=== PATIENT | male | born 1965 | race Caucasian/White ===

== ENCOUNTER 2019-08-09 22:19 | Inpatient (IN) | payer MEDICARE, SELFPAY | END 2019-08-13 17:50 | disposition home health service (06) | DRG 264 | PROVIDERS: Admitting Provider Internal Medicine; Emergency Provider Emergency Medicine; Family Provider Nurse Practitioner; Visit Provider Family Medicine | DX: E11.52 Type 2 diabetes mellitus with diabetic peripheral angiopathy with gangrene (principal); M86.172 Other acute osteomyelitis, left ankle and foot; I96 Gangrene, not elsewhere classified; E11.69 Type 2 diabetes mellitus with other specified complication; I10 Essential (primary) hypertension; Z91.14 Patient's other noncompliance with medication regimen ==

== ENCOUNTER → 2019-09-06 10:59 | Outpatient (BNVA) | payer MEDICARE, SELFPAY | PROVIDERS: PCP Podiatrist Foot & Ankle Surgery; Visit Provider Podiatrist Foot & Ankle Surgery | DX: M86.172 Other acute osteomyelitis, left ankle and foot (principal); I73.9 Peripheral vascular disease, unspecified; L97.522 Non-pressure chronic ulcer of other part of left foot with fat layer exposed | CPT/HCPCS: 73630 ==

== ENCOUNTER 2019-09-19 12:16 | Outpatient (CLI) | payer MEDICARE, SELFPAY ==
[2019-09-19 13:03] VITALS: BMI 38.0
[2019-09-19 13:05] VITALS: BP 113/75; PULSE 67; RESP 18; TEMP 36.6; O2SAT 96
== END 2019-09-19 12:17 | disposition home or self-care (01) ==
LOC: GILAB 12:24
PROVIDERS: PCP Podiatrist Foot & Ankle Surgery; Visit Provider Podiatrist Foot & Ankle Surgery
DX: M86.9 Osteomyelitis, unspecified (principal)

== ENCOUNTER 2020-07-29 09:37 | Emergency (ER) | payer MEDICARE, SELFPAY ==
[2020-07-29 09:38] VITALS: BP 158/79; PULSE 72; RESP 18; TEMP 36.7; O2SAT 94; BMI 36.9
--- NOTE | 2020-07-29 09:47 | ED_ITS ---
HPI - Wound/Laceration General: Chief Complaint: Wound/Laceration Stated Complaint: Right Foot Pain Time Seen by Provider: 07/29/20 09:40 Source: patient Mode of arrival: ambulatory Limitations: no limitations History of Present Illness: HPI narrative: 55 yo male patient presents to the ER with redness and pain to botton of left foot. 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 Pt states he is a type 1 diabetic but has not taken his insulin for a year. Pt states I will not give myself shots. Pt denies fever, chest pain SOB or abd pain. pt denies any injury or trauma. Associated symptoms: Denies chills, fever(s), nausea, syncope or vomiting Review of Systems Const: Denies: fever(s) or chills Eyes: Denies: change in vision or blurry vision ENMT: Denies: throat pain, uvular edema, enlarged tonsils or odynophagia Card: Denies: chest pain, palpitations, irregular heart rhythm, lightheadedness or syncope Resp: Denies: dyspnea, productive cough, non-productive cough, wheezing or pain on inspiration GI: Denies: abdominal pain, nausea, vomiting, diarrhea or constipation : Denies: flank pain, difficulty urinating, dysuria or urinary frequency Musc: Reports: extremity pain; Denies: neck pain or back pain Skin/Breast: Reports: new lesions Neuro: Denies: headache(s), numbness in extremities or weakness in extremities Psych: Denies: suicidal ideation or homicidal ideation Endo: Denies: polyuria or polydipsia Javed/Lymph: Denies: easy bruising, easy bleeding, petechiae, purpura, enlarged lymph nodes or tender lymph nodes All/Imm: Denies: urticaria, throat swelling, tongue swelling, facial swelling, acute wheezing or itchy eyes PFSH ED PFSH: Medical History (Updated 07/29/20 @ 12:12 by Erika Acharya) Hypertension Type 2 diabetes mellitus with diabetic neuropathy Surgical History History of open reduction and internal fixation (ORIF) procedure Right tibia. 1996 Family History Denies family history of Diabetes CAD (coronary artery disease) Clotting disorder Dementia Hyperlipidemia Psychiatric illness Chronic kidney disease (CKD) Suicide Anesthesia complication Bleeding disorder Family history of premature coronary artery disease Lung disease Cancer Hypertension Stroke Social History Smoking and tobacco status: never smoked Alcohol intake: current Alcohol intake frequency: holidays/special occasions only Current occupational status: employed Physical Exam Const: COMMON NORMALS: no acute distress, patient oriented x3, healthy appearing, alert and well nourished GENERAL APPEARANCE: cooperative, comfortable, well kempt and well developed; not ill appearing ORIENTATION/CONSCIOUSNESS: Yes awake, Yes oriented to person, Yes oriented to place and Yes oriented to time HENMT: COMMON NORMALS: normocephalic, atraumatic, hearing grossly normal bilaterally, external ears normal, EAC's normal, TM's normal bilaterally, Normal external nose present, Normal nasal mucous membranes and turbinates present and moist oral mucous membranes HEAD & SCALP: normal to inspection, normocephalic and atraumatic FACE & SINUS: normal facial exam, sinuses nontender and face symmetric NOSE: Normal external nose present, Normal nares present, Normal nasal mucous membranes and turbinates present, No nasal discharge present and Abnormal external nose present EXTERNAL EAR: Yes external ears normal and Yes mastoids normal EXTERNAL AUDITORY CANAL: EAC's normal TYMPANIC MEMBRANE: TM's normal bilaterally MOUTH: Normal oral and palatal mucosa present, lip normal, tongue normal and Normal salivary glands and ducts present THROAT: no uvular edema Eye: COMMON NORMALS: Equal, round and reactive pupils present, EOMs intact bilaterally, conjunctivae normal, no scleral icterus and no papilledema GENERAL EYE: appearance normal, both eyes and all related structures EYELID: eyelids normal CONJUNCTIVA: Yes conjunctivae normal SCLERA: sclerae normal CORNEA: Yes corneas normal PUPIL: Yes Equal, round and reactive pupils present DIRECT OPHTHALMOSCOPY: Yes no papilledema Neck/C-Spine: COMMON NORMALS: full ROM, no lymphadenopathy, supple, no meningeal signs, no JVD and Thyroid normal GENERAL: Yes normal visual inspection and Yes trachea midline THYROID: Thyroid normal CERVICAL SPINE: Yes cervical ROM normal Lymph: LYMPHATIC: no lymphadenopathy noted and no lymphedema noted Chest: COMMONS NORMALS: normal inspection of the chest and normal palpation of entire chest wall Resp: COMMON NORMALS: normal respiratory effort, No retractions, No use of accessory muscles and clear to auscultation bilaterally EFFORT & INSPECTION: Yes able to speak in complete sentences and Yes symmetric chest movement AUSCULTATION: clear to auscultation bilaterally Cardio: COMMON NORMALS: no JVD, regular rate and regular rhythm RATE: regular rate RHYTHM: regular rhythm GI: COMMON NORMALS: Normal to inspection, nondistended, normoactive bowel sounds present, Soft to palpation, non-tender, No hepatosplenomegaly present, no masses and no bruits INSPECTION: Yes normal to inspection AUSCULTATION: Yes normoactive bowel sounds PALPATION: Yes Soft to palpation and Yes No hepatosplenomegaly present RECTAL EXAM: Yes deferred : COMMON NORMALS: Yes no CVA tenderness BLADDER/KIDNEY EXAM: Yes no CVA tenderness Back/Pelvis: COMMON NORMALS: no CVA tenderness, thoracic and lumbar spine normal to inspection, no thoracic nor lumbar tenderness, thoraco-lumbar ROM normal and straight leg raise negative bilaterally THORACIC SPINE/UPPER BACK: Yes normal to inspection LUMBAR SPINE/LOWER BACK: Yes normal to inspection Extremity: COMMON NORMALS: full ROM, capillary refill normal, no joint enlargement, no clubbing, cyanosis or edema, no calf tenderness and no pedal edema EXTREMITY IMAGE (FRONT): 1. erythema Neuro: COMMON NORMALS: patient oriented x3, CN's II-XII intact bilaterally, moves all extremities, no focal motor deficits, no sensory deficits noted, deep tendon reflexes 2+ bilaterally and gait normal SENSORIUM/ORIENTATION: Yes alert, Yes oriented to person, Yes oriented to place and Yes oriented to time MENINGEAL SIGNS: Yes no meningeal signs CRANIAL NERVES: Yes CN normal except as noted SPEECH: speech normal GAIT: Yes Normal gait present SENSORY EXAM: Yes extremities MOTOR EXAM: 5/5 motor strength present throughout Psych: COMMON NORMALS: mental status grossly normal, Normal thought process present, cooperative, normal affect, speech normal, activity/motor behavior normal, denies hallucinations, denies homicidal ideation and denies suicidal ideation APPEARANCE: Yes grossly normal and Yes well kempt ATTITUDE: Yes calm ACTIVITY/MOTOR BEHAVIOR: Yes appropriate eye contact SPEECH: Yes normal speech THOUGHT PROCESS: Normal thought process present THOUGHT CONTENT: Yes Normal thought content present ATTENTION/CONCENTRATION: Yes attention grossly intact MEMORY/COGNITION: Yes memory grossly intact INSIGHT: Good insight present (Psych) JUDGEMENT: Good judgement present (Psych) Skin: COMMON NORMALS: no rashes or lesions noted, no wounds, turgor normal, no jaundice, no petechiae and no mottling GENERAL SKIN EXAM: no rashes or lesions noted and turgor normal Course Vital Signs: Vital signs: Vital Signs Temperature 98.1 F 07/29/20 09:38 Pulse Rate 63 07/29/20 12:28 Respiratory Rate 16 07/29/20 12:28 Blood Pressure 122/83 07/29/20 12:28 Pulse Oximetry 96 07/29/20 12:28 MDM - Wound/Laceration 2 MDM Narrative: Medical decision making narrative: Patient is well-appearing nontoxic and in no acute distress. I did get an x-ray of patient's left footPatient: Jacky Sheikh #: [id number] : 1965Acct#:[id number] Age/Sex: 55 / MADM Date: 07/29/20 [facility] Dr: Ordering Provider/Ordering MD: Erika Acharya NP Date of Service: 07/29/20 Procedure(s): XR foot LT min 3V* [id number] Accession Number(s): [id number] Report Number: [id number] PROCEDURE INFORMATION: Exam: XR Left Foot Complete Exam date and time: 07/29/2020 9:47 AM Age: 55 years old Clinical indication: Pain; Foot; Left; Additional info: Pain. Diabetic. TECHNIQUE: Imaging protocol: XR Left foot. Views: 3 or more views. COMPARISON: No relevant prior studies available. FINDINGS: Bones/joints: Multi-articular primary osteoarthritic changes including joint space narrowing, subchondral cystic/sclerotic changes, and marginal osteophyte formations. Enthesophytes are present off the os calcis at the Achilles insertion and plantar fascia origin. Soft tissues: Normal. Other findings: Moderate hallux valgus. XR/XR foot LT min 3V* [id number] IMPRESSION: 1. Multi-articular primary osteoarthritic changes are present as described above. 2. Moderate hallux valgus. There is no evidence of warm area concerning for gout. Patient's physical exam findings are consistent with early onset of a diabetic foot ulcer. Patient does have diabetic neuropathy. Patient states he does not check his blood sugar and has not taken insulin for over a year. Patient states he refuses to give himself insulin injections. His blood glucose here was 300. I advised patient of the risk of having uncontrolled blood sugars. Patient states he will follow- up with his primary care physician. I will refer patient to wound care management for follow met of his foot pain. I will start patient on antibiotics at this time. Patient is neurovascularly intact distally. Patient denied any other symptoms patient is afebrile. There is no evidence of systemic symptoms of illness. At this point do not feel any further testing is warranted. Patient is medically cleared and appropriate for discharge Lab Data: Labs: Lab Results 07/29/20 07/29/20 Range/Units 10:00 10:00 WBC 5.3 (4.0-10.0) 10^3/ uL RBC 5.56 H (4.1-5.3) 10^6/u L Hgb 15.2 (11.7-16.6) g/dL Hct 46.0 (42.0-52.0) % MCV 82.7 (80-94) fL MCH 27.3 L (28.0-34.0) pg MCHC 33.0 (30.0-36.0) g/dL RDW 12.4 (12.1-15.1) % Plt Count 185 (130-400) 10^3/c mm MPV 11.9 H (7.4-10.4) fL Neut % (Auto) 49.0 % Lymph % (Auto) 34.0 % [place] % (Auto) 8.3 % Eos % (Auto) 7.6 % Baso % (Auto) 0.9 % Neut # (Auto) 2.58 (1.8-7.7) 10^3/u L Lymph # (Auto) 1.8 (0.8-4.8) 10^3/u L [place] # (Auto) 0.4 (0.2-0.9) 10^3/u L Eos # (Auto) 0.4 (0.0-0.8) 10^3/u L Baso # (Auto) 0.1 (0.0-0.1) 10^3/u L Nucleated RBC % (a uto) 0 % Nucleated RBCs # 0.0 /100WBC Sodium 135 L (136-145) mmol/L Potassium 3.9 (3.5-5.1) mmol/L Chloride 102 (98-107) mmol/L Carbon Dioxide 23 (22-29) mmol/L Anion Gap 13.9 (5-19) BUN 14 (6-20) mg/dL Creatinine 0.7 (0.7-1.2) mg/dL GFR Calculation 116.2 (90-130) mL/min Glucose 302 H (65-115) mg/dL Calculated Osmolal ity 292 (285-295) mOsm/k g Calcium 8.8 (8.5-10.5) mg/dL Total Bilirubin 0.5 (0.15-1.2) mg/dL AST 21 (0-40) U/L ALT 26 (0-41) U/L Alkaline Phosphata se 111 (40-130) IU/L Total Protein 6.6 (6.6-8.7) g/dL Albumin 4.0 (3.5-5.2) g/dL Globulin 2.6 (1.3-4.6) g/dL Discharge Plan Discharge Patient Disposition: Home Clinical Impression: Diabetic foot ulcer Qualifiers: Diabetic foot ulcer location: unspecified part of foot Diabetes mellitus type: type 1 Laterality: left Non-pressure ulcer stage: limited to breakdown of skin Qualified Code(s): E10.621 - Type 1 diabetes mellitus with foot ulcer Condition: Stable Prescriptions: New cephalexin 500 mg capsule 500 mg PO QID 14 Days Qty: 56 RF: 0 No Action amlodipine 10 mg tablet 10 mg PO QAM RF: 0 meloxicam 15 mg tablet 15 mg PO DAILY PRN (Reason: Pain) RF: 0 Levemir U-100 Insulin 100 unit/mL Solution See Rx Instructions .ROUTE .COMPLEX RF: 0 atorvastatin 40 mg tablet 40 mg PO QAM RF: 0 Discharge Orders: Discharge ED (Routine); Ordered 07/29/20 Ordered By: Erika Acharya Referrals: Reuben Nassar DPM [Primary Care Provider] - Discharge Diet: Advance as tolerated Discharge Activity: Increase activity as tolerated Activity Restrictions/Additional Instructions: Dental Receptionist will call you on Thursday for wound care follow up Please check foot daily and return with any worsening of symptoms Please take antibiotics as prescribed Coding Level of Care Code ED Net Front End Developer for g Fwd Exam Comprehensive
[2020-07-29 10:16] LABS: Basophils # 0.1 10^3/uL (0.0-0.1); Basophils % 0.9 %; Eosinophils # 0.4 10^3/uL (0.0-0.8); Eosinophils % 7.6 %; Hemoglobin 15.2 g/dL (11.7-16.6); Lymphocytes # 1.8 10^3/uL (0.8-4.8); Mean Corpuscular Hemoglobin 27.3 pg (28.0-34.0); Mean Corpuscular Volume 82.7 fL (80-94); Mean Platelet Volume 11.9 fL (7.4-10.4); Monocytes # 0.4 10^3/uL (0.2-0.9); Monocytes % 8.3 %; Neutrophils # 2.58 10^3/uL (1.8-7.7); Nucleated Red Blood Cells % 0 %; Platelet Count 185 10^3/cmm (130-400); Red Blood Count 5.56 10^6/uL (4.1-5.3); Red Cell Distribution Width 12.4 % (12.1-15.1); White Blood Count 5.3 10^3/uL (4.0-10.0)
[2020-07-29 10:38] LABS: Alanine Aminotransferase 26 U/L (0-41); Alkaline Phosphatase 111 IU/L (40-130); Anion Gap 13.9 (5-19); Aspartate Amino Transferase 21 U/L (0-40); Blood Urea Nitrogen 14 mg/dL (6-20); Calcium 8.8 mg/dL (8.5-10.5); Carbon Dioxide 23 mmol/L (22-29); Chloride 102 mmol/L (98-107); Globulin 2.6 g/dL (1.3-4.6); Glomerular Filtration Rate 116.2 mL/min (90-130); Glucose 302 mg/dL (65-115); Osmolality Calculated 292 mOsm/kg (285-295); Potassium 3.9 mmol/L (3.5-5.1); Sodium 135 mmol/L (136-145); Total Bilirubin 0.5 mg/dL (0.15-1.2); Total Protein 6.6 g/dL (6.6-8.7)
[2020-07-29 12:28] VITALS: BP 122/83; PULSE 63; RESP 16; O2SAT 96
[2020-07-29 14:45] LABS: Estmated Average Glucose 237; Hemoglobin A1C 9.9 % (4.0-6.0)
--- NOTE | 2020-07-30 11:07 | DCPLANNER ---
manager card had message to schedule a follow up appointment for patient with Wound Care. manager card called the Wound Care clinic, spoke with Maria Del Carmen, gave clinic patients information. A follow up appointment was scheduled for , August 02, 2020 at 2:[address] Murillo. manager card called patient and gave patients the appointment information.
--- NOTE | 2020-08-22 13:19 | DCPLANNER ---
Patient had a followup appointment scheduled for 08.02.20 with Wound Care - patient did attend appointment.
== END 2020-07-29 12:23 | disposition home or self-care (01) ==
PROVIDERS: Emergency Provider Registered Nurse; PCP Podiatrist Foot & Ankle Surgery
DX: E10.621 Type 1 diabetes mellitus with foot ulcer (principal); Z79.4 Long term (current) use of insulin; I10 Essential (primary) hypertension
CPT/HCPCS: 12345; 73630; 80053; 83036; 85025; 99281; 99283

== ENCOUNTER 2020-08-08 09:13 | Outpatient (CLI) | payer MEDICARE, SELFPAY | END 2020-08-08 09:14 | disposition home or self-care (01) | PROVIDERS: PCP Podiatrist Foot & Ankle Surgery; Visit Provider Nurse Practitioner Family | DX: L97.522 Non-pressure chronic ulcer of other part of left foot with fat layer exposed (principal) | CPT/HCPCS: G0463 ==

== ENCOUNTER 2021-08-05 10:41 | Outpatient (CLI) | payer MEDICARE, SELFPAY ==
--- NOTE | 2021-08-05 11:00 | MR_ITS ---
WS: [id number] INDICATION: Localized swelling of right leg with lump TECHNIQUE: MR of the right lower leg without and with gadolinium enhancement FINDINGS: Postoperative changes intramedullary francisco javier fixation tibial shaft with screw fixation distally . This results in susceptibility artifact degrades some images. Palpable concern indicated with a vitamin E marker in the lower leg laterally. No evidence of underly ing subcutaneous mass or lesion. Normal underlying soft tissue and musculature. Normal-appearing unde rlying vessels. A few prominent veins in this area may correspond to the palpable abnormality. Normal visualized bone marrow signal in the tibia. Prior healed fracture mid fibula shaft. No other suspici ous findings. MR/MR lower leg RT wo/w con [id number] IMPRESSION: No suspicious mass or lesion in the area of palpable concern right lower leg. A few incidental prominent vessels in this area may correspond to the palpable l ump.
[2021-08-05] MEDS: gadobenate dimeglumine 20 mL vial IV (12:34)
== END 2021-08-05 10:42 | disposition home or self-care (01) ==
PROVIDERS: PCP Podiatrist Foot & Ankle Surgery; Visit Provider Family Medicine
DX: R22.41 Localized swelling, mass and lump, right lower limb (principal)
CPT/HCPCS: 73720; A9577

== ENCOUNTER → 2022-03-25 08:59 | Outpatient (BNVA) | payer MEDICARE, SELFPAY | PROVIDERS: Referring Provider Physician Assistant; Visit Provider Specialist | DX: G56.01 Carpal tunnel syndrome, right upper limb (principal); G56.21 Lesion of ulnar nerve, right upper limb | CPT/HCPCS: 95908; 95910 ==

== ENCOUNTER 2022-07-29 20:11 | Emergency (ER) | payer MEDICARE, SELFPAY ==
[2022-07-29 20:15] VITALS: BP 143/83; PULSE 69; RESP 18; TEMP 36.7; O2SAT 95; BMI 41.5
--- NOTE | 2022-07-29 21:01 | XRR_ITS ---
PROCEDURE INFORMATION: Exam: XR Left Foot Exam date and time: 07/29/2022 9:18 PM Age: 57 years old Clinical indication: Pain; Foot; Left; Additional info: Left foot infection TECHNIQUE: Imaging protocol: Radiologic exam of the Left foot. Views: 3 or more views. COMPARISON: No relevant prior studies available. FINDINGS: Bones/joints: Distal Achilles tendon degenerative calcification. Small calcified heel spur. Moderate to severe metatarsal tarsal joint and intertarsal joint osteoarthritis. 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 Soft tissues: Normal. XR/XR foot LT min 3V* [id number] IMPRESSION: 1. Negative for acute bony abnormality 2. Distal Achilles tendon degenerative calcification. 3. Small calcified heel spur. 4. Moderate to severe metatarsal tarsal joint and intertarsal joint osteoarthritis 5. 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
--- NOTE | 2022-07-29 23:33 | W.ED.EXTPRO ---
Documented by User: KEVIN Pepe 07/30/22 00:02 HPI - Extremity Problem General: Chief complaint: Extremity Problem,Nontraumatic Stated complaint: Dr Sent\Left Foot Toe Turning Black Time Seen by Provider: 07/29/22 23:22 History of Present Illness: Patient in for left great toe discoloration. states the patient chronically will get bruising and discoloration to the left great toe and then it becomes crusty and then flakes off. She reports that this time it has lasted for an entire week and that is atypical. They went to the primary care provider today and not provider sent him to ER but gave them a shot of Rocephin first. The patient denies any fever, chills, nausea, vomiting. Patient reports that he does not have any feeling in that toe. 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 Associated symptoms: Deny chest pain or fever(s) Review of Systems Const: Denies: fever(s) or chills Card: Denies: chest pain or palpitations Resp: Denies: dyspnea, productive cough or non-productive cough Skin/Breast: Reports: other (Redness with bluish discoloration left great toe) [facility] ED PFSH: Medical History (Updated 07/29/22 @ 23:48 by KEVIN Pepe) Hypertension Type 2 diabetes mellitus with diabetic neuropathy Surgical History History of open reduction and internal fixation (ORIF) procedure Right tibia. 1996 Family History Denies family history of Diabetes CAD (coronary artery disease) Clotting disorder Dementia Hyperlipidemia Psychiatric illness Chronic kidney disease (CKD) Suicide Anesthesia complication Bleeding disorder Family history of premature coronary artery disease Lung disease Cancer Hypertension Stroke Social History Smoking and tobacco status: never smoked Alcohol intake: current Alcohol intake frequency: holidays/special occasions only Current occupational status: employed Physical Exam Const: COMMON NORMALS: no acute distress, patient oriented x3 and alert Resp: COMMON NORMALS: normal respiratory effort and No use of accessory muscles Extremity: NARRATIVE EXTREMITY EXAM: Left great toe with some redness on the dorsal aspect of the toe on the lateral nail bed edge of the great toe there is purplish blue discoloration with some whitish border. Minimal fluctuance appreciated. With pressure there is a very small amount of purulent drainage expressed. Patient denies pain with manipulation or firm palpation on the toe. Neuro: COMMON NORMALS: patient oriented x3 SENSORIUM/ORIENTATION: Yes alert Course ED course: Toe was cleansed with Betadine. 11 blade scalpel used to make 1/2 cm incision into the area of fluctuance. Scant purulent drainage. Wound culture collected. No further drainage expressed. Advised patient and family of aftercare. Patient tolerated well with no pain sensation as he has chronic decreased sensation to the foot Vital Signs: Vital signs: Vital Signs Temperature 98.1 F 07/29/22 20:15 Pulse Rate 67 07/29/22 23:39 Respiratory Rate 14 07/29/22 23:39 Blood Pressure 142/77 07/29/22 23:39 Pulse Oximetry 91 07/29/22 23:39 Oxygen Delivery Me thod 07/29/22 20:15 MDM - Extremity (Nontraumatic) Medical Decision Making Abscess versus cellulitis versus chronic infection versus osteomyelitis. X-ray of the toe does not show any acute bony abnormality. No systemic symptoms appreciated patient's vital signs are stable. Patient was already given a dose of Rocephin in primary care however wound culture is collected here. Start patient on antibiotic. Follow-up with primary care for continued monitoring. Return to ER as needed for new or worsening symptoms. Lab Data Radiology Impressions Foot X-Ray 07/29/22 21:01 IMPRESSION: 1. Negative for acute bony abnormality 2. Distal Achilles tendon degenerative calcification. 3. Small calcified heel spur. 4. Moderate to severe metatarsal tarsal joint and intertarsal joint osteoarthritis 5. 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 Discharge Plan Discharge Patient Disposition: Home Clinical Impression: Paronychia of great toe Condition: Stable Prescriptions: New clindamycin HCl 300 mg capsule 300 mg PO Q8H 7 Days Qty: 21 0RF No Action amlodipine 10 mg tablet 10 mg PO QAM pioglitazone [Actos] 15 mg tablet 15 mg PO DAILY Januvia 100 mg tablet 100 mg PO DAILY lisinopril 2.5 mg tablet 2.5 mg PO DAILY metformin 1,000 mg tablet 1,000 mg PO DAILY glimepiride 2 mg tablet 2 mg PO DAILY meloxicam 15 mg tablet 15 mg PO DAILY PRN (Reason: Pain) atorvastatin 40 mg tablet 40 mg PO QAM Discharge Orders: Discharge ED (Routine); Ordered 07/29/22 Ordered By: Sushila Ascencio Discharge Diet: Usual diet Discharge Activity: Resume usual activity Patient Instructions: Paronychia (ED) Activity Restrictions/Additional Instructions: Take antibiotic as directed. You may soak the toe and warm Epson salt water 2-3 times a day but dry completely when done. Follow-up with primary care provider for continued evaluation and management. Return to the ER as needed for new or worsening symptoms. Coding Level of Care Code ED Supervisor Green End Department for Chg Fwd Exam Expanded Problem Focused Documented by User: Lamin Parker DO 07/30/22 07:14 HPI - Extremity Problem General: Chief complaint: Extremity Problem,Nontraumatic Stated complaint: Dr Sent\Left Foot Toe Turning Black Time Seen by Provider: 07/29/22 23:22 [facility] ED PFS: Medical History (Updated 07/29/22 @ 23:48 by CURTIS Pepe-Tu) Hypertension Type 2 diabetes mellitus with diabetic neuropathy Surgical History History of open reduction and internal fixation (ORIF) procedure Right tibia. 1996 Family History Denies family history of Diabetes CAD (coronary artery disease) Clotting disorder Dementia Hyperlipidemia Psychiatric illness Chronic kidney disease (CKD) Suicide Anesthesia complication Bleeding disorder Family history of premature coronary artery disease Lung disease Cancer Hypertension Stroke Social History Smoking and tobacco status: never smoked Alcohol intake: current Alcohol intake frequency: holidays/special occasions only Current occupational status: employed Course Vital Signs: Vital signs: Vital Signs Temperature 98.1 F 07/29/22 20:15 Pulse Rate 67 07/29/22 23:39 Respiratory Rate 14 07/29/22 23:39 Blood Pressure 142/77 07/29/22 23:39 Pulse Oximetry 91 07/29/22 23:39 Oxygen Delivery Me thod 07/29/22 20:15 MDM - Extremity (Nontraumatic) Medical Decision Making Abscess versus cellulitis versus chronic infection versus osteomyelitis. X-ray of the toe does not show any acute bony abnormality. No systemic symptoms appreciated patient's vital signs are stable. Patient was already given a dose of Rocephin in primary care however wound culture is collected here. Start patient on antibiotic. Follow-up with primary care for continued monitoring. Return to ER as needed for new or worsening symptoms. Chart reviewed and patient discussed with midlevel. Agree with assessment and plan. Lab Data Radiology Impressions Foot X-Ray 07/29/22 21:01
[2022-07-29 23:39] VITALS: BP 142/77; PULSE 67; RESP 14; O2SAT 91
[2022-07-30] MEDS: clindamycin 150 mg Capsule 300 MG PO (00:08)
== END 2022-07-30 00:09 | disposition home or self-care (01) ==
PROVIDERS: Emergency Provider Nurse Practitioner Family
DX: L03.032 Cellulitis of left toe (principal); I10 Essential (primary) hypertension; E11.9 Type 2 diabetes mellitus without complications; Z79.84 Long term (current) use of oral hypoglycemic drugs
CPT/HCPCS: 10060; 73630; 87070; 87077; 87186; 99283

== ENCOUNTER → 2022-08-25 09:23 | Outpatient (BNVA) | payer MEDICARE, SELFPAY | PROVIDERS: Visit Provider Thoracic Surgery (Cardiothoracic Vascular Surgery) | DX: E11.621 Type 2 diabetes mellitus with foot ulcer (principal); L89.890 Pressure ulcer of other site, unstageable | CPT/HCPCS: 11042; 99213 ==

== ENCOUNTER → 2022-09-01 10:24 | Outpatient (BNVA) | payer MEDICARE, SELFPAY | PROVIDERS: Visit Provider Thoracic Surgery (Cardiothoracic Vascular Surgery) | DX: E11.621 Type 2 diabetes mellitus with foot ulcer (principal); L89.892 Pressure ulcer of other site, stage 2 | CPT/HCPCS: 11042; A6250 ==

== ENCOUNTER 2022-09-15 11:56 | Outpatient (CLI) | payer MEDICARE, SELFPAY ==
--- NOTE | 2022-09-15 12:17 | XRR_ITS ---
PROCEDURE INFORMATION: Exam: XR Left Foot Exam date and time: 09/15/2022 12:35 PM Age: 57 years old Clinical indication: Condition or disease; Patient HX: Non healing ulcer R great toe; Additional info: Non-healing ulcer R great toe; Rule out osteomyelitis TECHNIQUE: Imaging protocol: Radiologic exam of the Left foot. Views: 3 or more views. COMPARISON: CR XR foot LT min 3V* [id number] 07/29/2022 9:18 PM FINDINGS: Bones/joints: Negative for acute bony abnormality. Negative for osteomyelitis in the great toe. Soft tissues: Normal. XR/XR foot LT min 3V* [id number] IMPRESSION: 1. No acute findings. 2. Negative for osteomyelitis
== END 2022-09-15 11:57 | disposition home or self-care (01) ==
LOC: RAD 12:00
PROVIDERS: Visit Provider Thoracic Surgery (Cardiothoracic Vascular Surgery)
DX: E11.621 Type 2 diabetes mellitus with foot ulcer (principal); L97.522 Non-pressure chronic ulcer of other part of left foot with fat layer exposed
CPT/HCPCS: 11042; 73630

== ENCOUNTER → 2022-09-24 10:11 | Outpatient (BNVA) | payer MEDICARE, SELFPAY | PROVIDERS: Visit Provider Thoracic Surgery (Cardiothoracic Vascular Surgery) | DX: I96 Gangrene, not elsewhere classified (principal); L89.892 Pressure ulcer of other site, stage 2 | CPT/HCPCS: 11042 ==

== ENCOUNTER → 2022-10-01 10:00 | Outpatient (BNVA) | payer MEDICARE, SELFPAY | PROVIDERS: Visit Provider Thoracic Surgery (Cardiothoracic Vascular Surgery) | DX: I96 Gangrene, not elsewhere classified (principal); E11.621 Type 2 diabetes mellitus with foot ulcer; L89.892 Pressure ulcer of other site, stage 2 | CPT/HCPCS: 11042 ==

== ENCOUNTER 2022-10-15 10:49 | Outpatient (CLI) | payer MEDICARE, SELFPAY ==
--- NOTE | 2022-10-15 12:00 | USCV_ITS ---
Gennaro Sheikh Age: 57 Gender: M : 1965 Exam Date: 10/15/2022 11:22 Ordering Phys: Roni Murillo MD (Andy) ([email or web address]) Technologist: CT [place]am [place] [facility] [place]ication: lft le swelling PROCEDURES: Venous duplex imaging was performed in only the left lower extremity. In addition, the posterior tibial and peroneal trunk were evaluated. On the left side, the common femoral, superficial femoral, profunda femoral, popliteal, posterior tibial, greater saphenous veins, and the peroneal trunk were identified and interrogated in the standard fashion. FINDINGS: Normal 2-D Doppler and augmentation and compressibility throughout the lower extremity venous structures. Additional imaging through the proximal calf veins also reveals no thrombus. Limited evaluation of the greater saphenous vein is patent with no thrombus. CONCLUSIONS No DVT left lower extremity. Dr. Jada Dhaliwal DO (Electronically Signed) Final Date: 15 October 2022 12:00 S
== END 2022-10-15 10:50 | disposition home or self-care (01) ==
LOC: RAD 10:52
PROVIDERS: PCP Family Medicine; Visit Provider Thoracic Surgery (Cardiothoracic Vascular Surgery)
DX: L97.522 Non-pressure chronic ulcer of other part of left foot with fat layer exposed (principal); M79.89 Other specified soft tissue disorders
CPT/HCPCS: 11042; 93971

== ENCOUNTER → 2022-10-22 09:39 | Outpatient (BNVA) | payer MEDICARE, SELFPAY | PROVIDERS: PCP Family Medicine; Visit Provider Nurse Practitioner Family | DX: I96 Gangrene, not elsewhere classified (principal); E11.621 Type 2 diabetes mellitus with foot ulcer; L97.522 Non-pressure chronic ulcer of other part of left foot with fat layer exposed | CPT/HCPCS: 11042 ==

== ENCOUNTER → 2022-10-29 09:39 | Outpatient (BNVA) | payer MEDICARE, SELFPAY | PROVIDERS: PCP Family Medicine; Visit Provider Nurse Practitioner Family | DX: I96 Gangrene, not elsewhere classified (principal); E11.621 Type 2 diabetes mellitus with foot ulcer; L97.522 Non-pressure chronic ulcer of other part of left foot with fat layer exposed | CPT/HCPCS: 97597; A6212 ==

== ENCOUNTER → 2022-11-05 10:02 | Outpatient (BNVA) | payer MEDICARE, SELFPAY | PROVIDERS: PCP Family Medicine; Visit Provider Nurse Practitioner Family | DX: I96 Gangrene, not elsewhere classified (principal); E11.621 Type 2 diabetes mellitus with foot ulcer; L89.892 Pressure ulcer of other site, stage 2 | CPT/HCPCS: 97597 ==

== ENCOUNTER → 2022-11-12 10:12 | Outpatient (BNVA) | payer MEDICARE, SELFPAY | PROVIDERS: PCP Family Medicine; Visit Provider Thoracic Surgery (Cardiothoracic Vascular Surgery) | DX: I96 Gangrene, not elsewhere classified (principal); E11.621 Type 2 diabetes mellitus with foot ulcer; L97.522 Non-pressure chronic ulcer of other part of left foot with fat layer exposed | CPT/HCPCS: 11042 ==

== ENCOUNTER → 2022-11-18 10:26 | Outpatient (BNVA) | payer MEDICARE, SELFPAY | PROVIDERS: PCP Family Medicine; Visit Provider Nurse Practitioner Family | DX: I96 Gangrene, not elsewhere classified (principal); E11.621 Type 2 diabetes mellitus with foot ulcer; L89.892 Pressure ulcer of other site, stage 2 | CPT/HCPCS: 97597; A6021 ==

== ENCOUNTER → 2022-11-25 10:02 | Outpatient (BNVA) | payer MEDICARE, SELFPAY | PROVIDERS: PCP Family Medicine; Visit Provider Nurse Practitioner Family | DX: Z09 Encounter for follow-up examination after completed treatment for conditions other than malignant neoplasm (principal) | CPT/HCPCS: 99212; A6212 ==

== ENCOUNTER → 2023-09-08 09:46 | Outpatient (BNVA) | payer MEDICARE, SELFPAY | PROVIDERS: PCP Family Medicine; Visit Provider Podiatrist Foot & Ankle Surgery | DX: L60.3 Nail dystrophy (principal); E11.40 Type 2 diabetes mellitus with diabetic neuropathy, unspecified; M20.42 Other hammer toe(s) (acquired), left foot; Z79.84 Long term (current) use of oral hypoglycemic drugs | CPT/HCPCS: 11721; 99203 ==

== ENCOUNTER → 2023-12-08 10:30 | Outpatient (BNVA) | payer MEDICARE, SELFPAY | PROVIDERS: PCP Family Medicine; Visit Provider Podiatrist Foot & Ankle Surgery | DX: L60.3 Nail dystrophy (principal); E11.40 Type 2 diabetes mellitus with diabetic neuropathy, unspecified; M20.42 Other hammer toe(s) (acquired), left foot; L84 Corns and callosities; Z79.84 Long term (current) use of oral hypoglycemic drugs | CPT/HCPCS: 11055; 11721 ==

== ENCOUNTER 2025-04-16 09:42 | Emergency (ER) | payer MEDICARE, SELFPAY ==
--- OUTSIDE RECORDS SUMMARY | 2025-04-16 09:46 | XMS_ITS | Encounter Summary ---
Author Organization [facility] Address [address] [place] [address] Care Team Providers Care Cow Washer Name Role Phone Lito Figueroa MD Primary Care Provider Encounter Details Date Type Department Care Team (Latest Contact Info) Description 02/02/2006 Outpatient Historical [facility] Medicine [address] [phone] Ria Jules MD [address] [place] [phone] Closed Fracture of Unspecified Part of Fibula (Primary Dx) Social History Tobacco Use Types Packs/Day Years Used Date Smoking Tobacco: Never Assessed Sex and Gender Information Value Date Recorded Sex Assigned at Not on file 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
--- OUTSIDE RECORDS SUMMARY | 2025-04-16 09:46 | XMS_ITS | Encounter Summary ---
Author Organization [facility] Address [address] [place] [address] Care Team Providers Care Educational Diagnostician Name Role Phone Lito Figueroa MD Primary Care Provider Encounter Details Date Type Department Care Team (Latest Contact Info) Description 03/19/2006 Outpatient Historical [facility] Medicine [address] [phone] Dario Baird, ADULT EDUCATION TEACHER [address] [place] [address] Cellulitis and Abscess of Leg, except Foot (Primary Dx) Social History Tobacco Use Types Packs/Day Years Used Date Smoking Tobacco: Never Assessed Sex and Gender Information Value Date Recorded Sex Assigned at Not on file 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
--- OUTSIDE RECORDS SUMMARY | 2025-04-16 09:46 | XMS_ITS | Encounter Summary ---
Author Organization [facility] Address [address] [place] [address] Care Team Providers Care Testing And Regulating Technician Name Role Phone Lito Figueroa MD Primary Care Provider [phone] Encounter Details Date Type Department Care Team (Latest Contact Info) Description 04/02/2007 Outpatient Historical [facility] Medicine [place] [address] [phone] Dario Baird, REGULATORY AFFAIRS COORDINATOR [address] [place] [address] Unspecified Essential Hypertension (Primary Dx); Edema Social History Tobacco Use Types Packs/Day Years Used Date Smoking Tobacco: Never Assessed Sex and Gender Information Value Date Recorded Sex Assigned at Not on file 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
--- OUTSIDE RECORDS SUMMARY | 2025-04-16 09:46 | XMS_ITS | Encounter Summary ---
Author Organization [facility] Address [address] [place] [address] Care Team Providers Care Roof Cement And Paint Maker Name Role Phone Lito Figueroa MD Primary Care Provider Encounter Details Date Type Department Care Team (Latest Contact Info) Description 03/16/2006 Outpatient Historical [facility] Medicine [address] [phone] Dario Baird, STRINGING MACHINE TENDER [address] [place] [address] Cellulitis and Abscess of Leg, except Foot (Primary Dx) Social History Tobacco Use Types Packs/Day Years Used Date Smoking Tobacco: Never Assessed Sex and Gender Information Value Date Recorded Sex Assigned at Not on file Legal Sex Male 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
--- OUTSIDE RECORDS SUMMARY | 2025-04-16 09:46 | XMS_ITS | Encounter Summary ---
Author Organization [facility] Address [address] [place] [address] Care Team Providers Care Access Representative Name Role Phone Lito Figueroa MD Primary Care Provider [phone] Encounter Details Date Type Department Care Team (Latest Contact Info) Description 04/01/2006 Outpatient Historical [facility] Medicine [address] [phone] Dario Baird, UTILITY PIPE LAYER [address] [place] [address] Unspecified Essential Hypertension (Primary Dx); Pain in Joint, Lower Leg Social History Tobacco Use Types Packs/Day Years Used Date Smoking Tobacco: Never Assessed Sex and Gender Information Value Date Recorded Sex Assigned at Not on file Legal Sex Male 3:26 AM JUNCTION MAKER Gender Identity Not on file Sexual Orientation Not on file documented as of this encounter Plan of Treatment Not on file documented as of this encounter Visit Diagnoses Diagnosis Unspecified essential hypertension- Primary Pain in joint, lower leg documented in this encounter Care Teams Access Representative Relationship Specialty Start Date End Date Lito Figueroa MD PCP - General Family Practice 06/18/12 documented as of this encounter
--- OUTSIDE RECORDS SUMMARY | 2025-04-16 09:46 | XMS_ITS | Encounter Summary ---
Author Organization [facility] Address [address] [place] [address] Care Team Providers Care Securities Sales Associate Name Role Phone Lito Figueroa MD Primary Care Provider [phone] Encounter Details Date Type Department Care Team (Late st Contact Info) Description 05/02/2005 Outpatient [facility] Physical Med and Rehab[address] [phone] Social History Tobacco Use Types Packs/Day Years Used Date Smoking Tobacco: Never Assessed Sex and Gender Information Value Date Recorded Sex Assigned at Not on file Legal Sex Male 3:26 AM BAR TURNER Gender Identity Not on file Sexual Orientation Not on file documented as of this encounter Plan of Treatment Not on file documented as of this encounter Visit Diagnoses Not on filedocumented in this encounter Care Teams Securities Sales Associate Relationship Specialty Start Date End Date Lito Figueroa MD PCP - General Family Practice 06/18/12 documented as of this encounter
--- OUTSIDE RECORDS SUMMARY | 2025-04-16 09:46 | XMS_ITS | Encounter Summary ---
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
--- OUTSIDE RECORDS SUMMARY | 2025-04-16 09:46 | XMS_ITS | Encounter Summary ---
Author Organization [facility] Address [address] [place] [address] Care Team Providers Care Cloth Bin Packer Name Role Phone Lito Figueroa MD Primary Care Provider Encounter Details Date Type Department Care Team (Latest Contact Info) Description 01/01/2007 Outpatient Historical [facility] Cardiovascular Services [address] [place] [address] Dario Baird, DIAMOND WHEEL MOLDER [address] [place] [address] Palpitations (Primary Dx) Social History Tobacco Use Types Packs/Day Years Used Date Smoking Tobacco: Never Assessed Sex and Gender Information Value Date Recorded Sex Assigned at Not on file Legal Sex Male 3:26 AM DEBARKER OPERATOR Gender Identity Not on file Sexual Orientation Not on file documented as of this encounter Plan of Treatment Not on file documented as of this encounter Visit Diagnoses Diagnosis Palpitations- Primary documented in this encounter Care Teams Cloth Bin Packer Relationship Specialty Start Date End Date Lito Figueroa MD PCP - General Family Practice 06/18/12 documented as of this encounter
--- OUTSIDE RECORDS SUMMARY | 2025-04-16 09:46 | XMS_ITS | Encounter Summary ---
Author Organization [facility] Address [address] [place] [address] Care Team Providers Care Nuclear Operator Name Role Phone Lito Figueroa MD Primary Care Provider Encounter Details Date Type Department Care Team (Late st Contact Info) Description 01/12/2008 Outpatient Historical [facility] Imaging Services [place] [facility] 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
--- OUTSIDE RECORDS SUMMARY | 2025-04-16 09:46 | XMS_ITS | Encounter Summary ---
Author Organization [facility] Address [address] [place] [address] Care Team Providers Care Dry Curer Name Role Phone Lito Figueroa MD Primary Care Provider Encounter Details Date Type Department Care Team (Latest Contact Info) Description 05/18/2006 Outpatient Historical [facility] 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
--- OUTSIDE RECORDS SUMMARY | 2025-04-16 09:46 | XMS_ITS | Encounter Summary ---
Author Organization [facility] Address [address] [place] [address] Care Team Providers Care Fitness And Wellness Manager Name Role Phone Lito Figueroa MD Primary Care Provider [phone] Encounter Details Date Type Department Care Team (Latest Contact Info) Description 03/02/2006 Outpatient Historical [facility] Medicine [address] [phone] Dario Baird, RECORD CHANGER ASSEMBLER [address] [place] [address] Cellulitis and Abscess of Unspecified Site (Primary Dx) Social History Tobacco Use Types Packs/Day Years Used Date Smoking Tobacco: Never Assessed Sex and Gender Information Value Date Recorded Sex Assigned at Not on file Legal Sex Male 3:26 AM SAP PORTAL DEVELOPER Gender Identity Not on file Sexual Orientation Not on file documented as of this encounter Plan of Treatment Not on file documented as of this encounter Visit Diagnoses Diagnosis Cellulitis and abscess of unspecified site- Primary documented in this encounter Care Teams Fitness And Wellness Manager Relationship Specialty Start Date End Date Lito Figueroa MD PCP - General Family Practice 06/18/12 documented as of this encounter
--- OUTSIDE RECORDS SUMMARY | 2025-04-16 09:46 | XMS_ITS | Encounter Summary ---
Author Organization [facility] Address [address] [place] [address] Care Team Providers Care Doctor Of Dental Medicine Name Role Phone Lito Figueroa MD Primary Care Provider Encounter Details Date Type Department Care Team (Latest Contact Info) Description 12/25/2006 Outpatient Historical [facility] Medicine [place] [address] [phone] Dario Baird, GAS INSPECTOR [address] [place] [address] Other Specified Cardiac Dysrhythmias (Primary Dx) Social History Tobacco Use Types Packs/Day Years Used Date Smoking Tobacco: Never Assessed Sex and Gender Information Value Date Recorded Sex Assigned at Not on file Legal Sex Male 3:26 AM CONE SEWER Gender Identity Not on file Sexual Orientation Not on file documented as of this encounter Plan of Treatment Not on file documented as of this encounter Visit Diagnoses Diagnosis Other specified cardiac dysrhythmias(427.89)- Primary Other specified cardiac dysrhythmias documented in this encounter Care Teams Doctor Of Dental Medicine Relationship Specialty Start Date End Date Lito Figueroa MD PCP - General Family Practice 06/18/12 documented as of this encounter
--- OUTSIDE RECORDS SUMMARY | 2025-04-16 09:46 | XMS_ITS | Encounter Summary ---
Author Organization [facility] Address [address] [place] [address] Care Team Providers Care Graphic Design Specialist Name Role Phone Lito Figueroa MD Primary Care Provider Encounter Details Date Type Department Care Team (Late st Contact Info) Description 01/05/2008 Outpatient Historical [facility] Imaging Services [place] 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 CORPORATE STRATEGY Gender Identity Not on file Sexual Orientation Not on file documented as of this encounter Plan of Treatment Not on file documented as of this encounter Procedures Procedure Name Priority Date/Time Associated Diagnosis Comments MRI HIP WO CONTRAST RIGHT Routine 01/12/2008 1:23 PM CDT MRI LUMBAR WO CONTRAST Routine 01/12/2008 12:58 PM CDT documented in this encounter Results * MRI HIP WO CONTRAST RIGHT (01/12/2008 1:23 PM CDT) Anatomical Region Laterality Modality Lower Extremity Other 01/12/2008 1:23 PM CDT Narrative 01/12/2008 1:44 PM CDT MRI of the pelvis and right hip was performed without contrast. The femoral heads are preserved and there is no collapse or avascular necrosis. There is a physiologic amount of fluid in the hip joints. No stress or insufficiency fracture is identified in the sacrum or pelvis. No inguinal hernia is identified and there is no adenopathy in the groin. The hamstring tendons and ischial tuberosities are unremarkable. A trace amount of gluteal tendon thickening with adjacent edema is noted bilaterally. This is very subtle and the appearance is compatible with some very low grade tendinopathy. This may not even be apparent clinically. No focal muscle atrophy is identified. Impression: 1. Trace amount of gluteal tendinopathy at the greater trochanters bilaterally. Otherwise unremarkable exam. - Dictated By: Hilda James M.D. Electronically Signed By: Hilda James M.D. Date Signed: 01/12/08 Procedure Note Hilda James - 01/12/2008 MRI of the pelvis and right hip was performed without contrast. The femoral heads are preserved and there is no collapse or avascularnecrosis. There is a physiologic amount of fluid in the hip joints. No stress or insufficiency fracture isidentified in the sacrum or pelvis. No inguinal hernia is identified and there is no adenopathy in thegroin. The hamstring tendons and ischial tuberosities are unremarkable. A trace amount of glutealtendon thickening with adjacent edema is noted bilaterally. This is very subtle and the appearance iscompatible with some very low grade tendinopathy. This may not even be apparent clinically. No focal muscleatrophy is identified. Impression: 1. Trace amount of gluteal tendinopathy at the greater trochantersbilaterally. Otherwise unremarkable exam. - Dictated By: Hilda James M.D. Electronically Signed By: Hilda James M.D. Date Signed: 01/12/08 us Ria Jules MD MR ORDERABLES Final Result * MRI LUMBAR WO CONTRAST (01/12/2008 12:58 PM CDT) Anatomical Region Laterality Modality Spine Other 01/12/2008 12:5 8 PM CDT Narrative 01/12/2008 3:22 PM CDT The lumbar spine is normal in sagittal alignment. The conus medullaris and are appear normal. No intradural disease is present. Multiple Schmorl nodes are present. No site of of abnormal signal are seen in the lumbar spine on the STIR images. The paraspinal tissues are unremarkable. L1-L2: A moderate diffuse bulge of the disc is present. A small disc protrusion is noted in the left paracentral zone. L2-L3: A mild diffuse bulge of the disc is present. L3-L4: A mild diffuse bulge of the disc is present. L4-L5: Moderate diffuse bulge of the disc is present. Prominent foraminal stenosis is present on the right , apparently from disc protrusion and facet osteophytes. Mild to moderate facet arthritic changes are seen diffusely. L5-S1: Moderate facet arthritis is present. Moderate foraminal stenosis is present on the left. Impression: 1. Prominent foraminal stenosis is present on the right L4-L5 from disc and facet disease. This would be expected to affect the right L4 nerve. 2. Foraminal stenosis on the left at L5-S1 could cause impingement upon the left L5 nerve. 3. Multiple old mild traumatic changes are present. - Dictated By: Farhad Domingo M.D. Electronically Signed By: Farhad Domingo M.D. Date Signed: 01/12/08 Procedure Note Farhad Domingo - 01/12/2008 The lumbar spine is normal in sagittal alignment. The conus medullaris andare appear normal. No intradural disease is present. Multiple Schmorl nodes are present. No siteof of abnormal signal are seen in the lumbar spine on the STIR images. The paraspinal tissues areunremarkable. L1-L2: A moderate diffuse bulge of the disc is present. A small discprotrusion is noted in the left paracentral zone. L2-L3: A mild diffuse bulge of the disc is present. L3-L4: A mild diffuse bulge of the disc is present. L4-L5: Moderate diffuse bulge of the disc is present. Prominent foraminalstenosis is present on the right , apparently from disc protrusion and facet osteophytes. Mild tomoderate facet arthritic changes are seen diffusely. L5-S1: Moderate facet arthritis is present. Moderate foraminal stenosis ispresent on the left. Impression: 1. Prominent foraminal stenosis is present on the right L4-L5 from discand facet disease. This would be expected to affect the right L4 nerve. 2. Foraminal stenosis on the left at L5-S1 could cause impingement uponthe left L5 nerve. 3. Multiple old mild traumatic changes are present. - Dictated By: Farhad Domingo M.D. Electronically Signed By: Farhad Domingo M.D. Date Signed: 01/12/08 us Ria Jules MD MR ORDERABLES Final Result documented in this encounter Visit Diagnoses Diagnosis Lumbago documented in this encounter Care Teams Graphic Design Specialist Relationship Specialty Start Date End Date Lito Figueroa MD PCP - General Family Practice 06/18/12 documented as of this encounter
--- OUTSIDE RECORDS SUMMARY | 2025-04-16 09:46 | XMS_ITS | Encounter Summary ---
Author Organization [facility] Address [address] [place] [address] Care Team Providers Care Telecommunications Field Engineer Name Role Phone Lito Figueroa MD Primary Care Provider [phone] Encounter Details Date Type Department Care Team (Latest Contact Info) Description 03/18/2006 Outpatient Historical [facility] Medicine [address] [phone] Dario Baird, CHIEF LOCK TENDER OPERATOR [address] [place] [address] Cellulitis and Abscess of Leg, except Foot (Primary Dx) Social History Tobacco Use Types Packs/Day Years Used Date Smoking Tobacco: Never Assessed Sex and Gender Information Value Date Recorded Sex Assigned at Not on file Legal Sex Male 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
--- OUTSIDE RECORDS SUMMARY | 2025-04-16 09:46 | XMS_ITS | Encounter Summary ---
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 Gender Identity Not on file Sexual Orientation Not on file documented as of this encounter Plan of Treatment Not on file documented as of this encounter Procedures Procedure Name Priority Date/Time Associated Diagnosis Comments CBC WITH DIFFERENTIAL Routine 04/27/2005 4:13 PM CDT BASIC METABOLIC PANEL Routine 04/27/2005 4:13 PM CDT documented in this encounter Results * (ABNORMAL) CBC WITH DIFFERENTIAL (04/27/2005 4:13 PM CDT) WBC 11.6(H) 4.5 - 11.0 K/ul INTERFACE SYSTEM RBC 5.21 4.60 - 6.20 Mil/ul INTERFACE SYSTEM HEMOGLOBIN 14.7 14.0 - 18.0 g/dL INTERFACE SYSTEM HEMATOCRIT 44.0 41.0 - 53.0 % INTERFACE SYSTEM MCV 84.5 84.0 - 103.0 Fl INTERFACE SYSTEM MCH 28.2 27.0 - 34.0 pg INTERFACE SYSTEM MCHC 33.4 30.0 - 35.0 g/dL INTERFACE SYSTEM RDW 13.4 11.0 - 14.5 % INTERFACE SYSTEM PLATELETS 296 140 - 440 K/ul INTERFACE SYSTEM MPV 10.9 8.9 - 12.8 Fl INTERFACE SYSTEM NEUTROPHILS 75.7(H) 42.2 - 75.2 % INTERFACE SYSTEM LYMPHOCYTES 13.3(L) 24.0 - 44.0 % INTERFACE SYSTEM MONOCYTES 6.2 2.0 - 10.0 % INTERFACE SYSTEM EOSINOPHILS 4.2 0.0 - 7.0 % INTERFACE SYSTEM BASOPHILS 0.3 0.0 - 1.0 % INTERFACE SYSTEM NEUTROPHIL ABSOLUTE 8.8(H) 2.0 - 8.0 K/uL INTERFACE SYSTEM LYMPHOCYTE ABSOLUTE 1.5 1.2 - 4.0 K/ul INTERFACE SYSTEM MONOCYTE ABSOLUTE 0.7(H) 0.1 - 0.6 K/ul INTERFACE SYSTEM EOSINOPHIL ABSOLUTE 0.5 0.0 - 0.7 K/ul INTERFACE SYSTEM BASOPHILS ABSOLUTE 0.0 0.0 - 0.2 K/ul INTERFACE SYSTEM 04/27/2005 4:13 PM CDT Harry Brown MD HEMATOLOGY ORDERABLES Final Result INTERFACE SYSTEM Refer to clinic/hospital department * (ABNORMAL) BASIC METABOLIC PANEL (04/27/2005 4:13 PM CDT) GLUCOSE 137(H) 70 - 110 mg/dL INTERFACE SYSTEM BUN 14 9 - 20 mg/dL INTERFACE SYSTEM CREATININE 1.0 0.7 - 1.5 mg/dL INTERFACE SYSTEM SODIUM 139 136 - 145 mEq/L INTERFACE SYSTEM POTASSIUM 3.9 3.5 - 5.0 mEq/L INTERFACE SYSTEM CHLORIDE 99 95 - 110 mEq/L INTERFACE SYSTEM CO2 26 22 - 32 mmol/l INTERFACE SYSTEM ANION GAP 18 9 - 20 mEq/L INTERFACE SYSTEM OSMOLALITY, CALCULATED 288 275 - 295 mOsm/Kg INTERFACE SYSTEM CALCIUM 9.0 8.4 - 10.5 mg/dL INTERFACE SYSTEM 04/27/2005 4:13 PM CDT us Harry Brown MD CHEMISTRY ORDERABLES Final Result INTERFACE SYSTEM Refer to clinic/hospital department documented in this encounter Visit Diagnoses Diagnosis Sunburn of second degree- Primary documented in this encounter Care Teams Ranch Rider Relationship Specialty Start Date End Date Lito Figueroa MD PCP - General Family Practice 06/18/12 documented as of this encounter
--- OUTSIDE RECORDS SUMMARY | 2025-04-16 09:46 | XMS_ITS | Encounter Summary ---
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
--- OUTSIDE RECORDS SUMMARY | 2025-04-16 09:46 | XMS_ITS | Encounter Summary ---
Author Organization [facility] Address [address] [place] [address] Care Team Providers Care Rehabilitation Program Coordinator Name Role Phone Lito Figueroa MD Primary Care Provider Encounter Details Date Type Department Care Team (Latest Contact Info) Description 05/22/2006 Outpatient Historical [facility] Medicine [address] [phone] Dario Baird, EMULSION OPERATOR [address] [place] [address] Unspecified Essential Hypertension (Primary Dx) Social History Tobacco Use Types Packs/Day Years Used Date Smoking Tobacco: Never Assessed Sex and Gender Information Value Date Recorded Sex Assigned at Not on file 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
--- OUTSIDE RECORDS SUMMARY | 2025-04-16 09:46 | XMS_ITS | Encounter Summary ---
Author Organization [facility] Address [address] [place] [address] Care Team Providers Care Lawn And Garden Technician Name Role Phone Lito Figueroa MD Primary Care Provider [phone] Encounter Details Date Type Department Care Team (Latest Contact Info) Description 05/03/2007 Outpatient Historical [facility] Medicine [address] [phone] Dario Baird, UNDERWEAR CUTTER [address] [place] [address] Unspecified Essential Hypertension (Primary Dx) Social History Tobacco Use Types Packs/Day Years Used Date Smoking Tobacco: Never Assessed Sex and Gender Information Value Date Recorded Sex Assigned at Not on file 

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
--- OUTSIDE RECORDS SUMMARY | 2025-04-16 09:46 | XMS_ITS | Encounter Summary ---
Author Organization [facility] Address [address] [place] [address] Care Team Providers Care Bilingual Hr Generalist Name Role Phone Lito Figueroa MD Primary Care Provider Encounter Details Date Type Department Care Team (Latest Contact Info) Description 02/27/2006 Outpatient Historical [facility] Medicine [address] [phone] Dario Baird, SENIOR QUALITATIVE RESEARCHER [address] [place] [address] Cellulitis and Abscess of Unspecified Site (Primary Dx) Social History Tobacco Use Types Packs/Day Years Used Date Smoking Tobacco: Never Assessed Sex and Gender Information Value Date Recorded Sex Assigned at Not on file 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
--- OUTSIDE RECORDS SUMMARY | 2025-04-16 09:46 | XMS_ITS | Encounter Summary ---
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
--- OUTSIDE RECORDS SUMMARY | 2025-04-16 09:46 | XMS_ITS | Encounter Summary ---
Author Organization [facility] Address [address] [place] [address] Care Team Providers Care Quill Cleaning Machine Operator Name Role Phone Lito Figueroa MD Primary Care Provider [phone] Encounter Details Date Type Department Care Team (Latest Contact Info) Description 03/09/2006 Outpatient Historical [facility] Medicine [address] [phone] Dario Baird, CO FOUNDER AND CEO [address] [place] [address] Cellulitis and Abscess of Leg, except Foot (Primary Dx) Social History Tobacco Use Types Packs/Day Years Used Date Smoking Tobacco: Never Assessed Sex and Gender Information Value Date Recorded Sex Assigned at Not on file 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
--- OUTSIDE RECORDS SUMMARY | 2025-04-16 09:46 | XMS_ITS | Encounter Summary ---
Author Organization [facility] Address [address] [place] [address] Care Team Providers Care Shoe Stock Associate Name Role Phone Lito Figueroa MD Primary Care Provider [phone] Encounter Details Date Type Department Care Team (Latest Contact Info) Description 05/27/2006 Outpatient Historical [facility] Medicine [place] [address], [place] [phone] Lito Figueroa MD [address] [phone] Unspecified Essential Hypertension (Primary Dx) Social History Tobacco Use Types Packs/Day Years Used Date Smoking Tobacco: Never Assessed Sex and Gender Information Value Date Recorded Sex Assigned at Not on file 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
--- OUTSIDE RECORDS SUMMARY | 2025-04-16 09:46 | XMS_ITS | Encounter Summary ---
Author Organization [facility] Address [address] [place] [address] Care Team Providers Care Senior Systems Software Engineer Name Role Phone Lito Figueroa MD Primary Care Provider Encounter Details Date Type Department Care Team (Late st Contact Info) Description 03/22/2006 Emergency [facility] Emergency Department [address] [place] [address] Farhad Sen DO [address] [place], [place] [id number] Unspecified Essential Hypertension (Primary Dx) Social History Tobacco Use Types Packs/Day Years Used Date Smoking Tobacco: Never Assessed Sex and Gender Information Value Date Recorded Sex Assigned at Not on file 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 Gender Identity Not on file Sexual Orientation Not on file documented as of this encounter Plan of Treatment Not on file documented as of this encounter Procedures Procedure Name Priority Date/Time Associated Diagnosis Comments URINALYSIS MICROSCOPY ONLY Routine 03/22/2006 3:45 AM CDT URINALYSIS W/REFLEX MICROSCOPIC Routine 03/22/2006 3:45 AM CDT documented in this encounter Results * URINALYSIS MICROSCOPY ONLY (03/22/2006 3:45 AM CDT) WBC URINE 0-2 0 - 2 INTERFACE SYSTEM RBC UA None Seen 0 - 2 INTERFACE SYSTEM HYALINE CAST None Seen 0 - 2 INTERFA CE SYSTEM 03/22/2006 3:45 AM CDT Farhad Sen DO URINE ORDERABLES Final Result Performing Organization Address City/[facility]/ZIP Co de Phone Number INTERFACE SYSTEM Refer to clinic/hospital department * (ABNORMAL) URINALYSIS (03/22/2006 3:45 AM CDT) COLOR UA Yellow Straw INTERFACE SYSTEM CLARITY UA Clear Clear INTERFACE SYSTEM LEUKOCYTE ESTERASE UA NEGATIVE NEGATIVE INTERFACE SYSTEM NITRITE UA NEGATIVE NEGATIVE INTERFACE SYSTEM PH UA 5.5 5.0 - 9.0 INTERFACE SYSTEM PROTEIN UA NEGATIVE NEGATIVE INTERFACE SYSTEM Comment: As of 05 positive protein results obtained on routine urinalysis will not be confirmed by sulfosalicylic acid (SSA) precipitation. Current methodology for protein detection is highly sensitive for detection of albumin; therefore, confirmation is not necessary. GLUCOSE UA NEGATIVE NEGATIVE INTERFACE SYSTEM KETONES UA NEGATIVE NEGATIVE INTERFACE SYSTEM UROBILINOGEN UA 0.2 0.2 INTE RFACE SYSTEM BILIRUBIN UA NEGATIVE NEGATIVE INTERFA CE SYSTEM BLOOD UA NEGATIVE NEGATIVE INTERFACE SYSTEM SPECIFIC GRAVITY UA 1.025 1.005 - 1.030 INTERFACE SYSTEM MICRO EXAM Yes(A) No INTERFACE SYSTEM 03/22/2006 3:45 AM CDT Farhad Sen DO URINE ORDERABLES Final Result Performing Organization Address [facility] Phone Number INTERFACE SYSTEM Refer to clinic/hospital department documented in this encounter Visit Diagnoses Diagnosis Unspecified essential hypertension- Primary documented in this encounter Care Teams Senior Systems Software Engineer Relationship Specialty Start Date End Date Lito Figueroa MD PCP - General Family Practice 06/18/12 documented as of this encounter
--- OUTSIDE RECORDS SUMMARY | 2025-04-16 09:46 | XMS_ITS | Encounter Summary ---
Author Organization [facility] Address [address] [place] [address] Care Team Providers Care Help Desk Supervisor Name Role Phone Lito Figueroa MD Primary Care Provider [phone] Encounter Details Date Type Department Care Team (Latest Contact Info) Description 02/23/2006 Outpatient Historical [facility] Medicine [address] [phone] Dario Baird, STUDENT OUTREACH COORDINATOR [address] [place] [address] Closed Fracture of Unspecified Part of Fibula (Primary Dx); Cellulitis and Abscess of Leg, except Foot Social History Tobacco Use Types Packs/Day Years Used Date Smoking Tobacco: Never Assessed Sex and Gender Information Value Date Recorded Sex Assigned at Not on file 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
--- OUTSIDE RECORDS SUMMARY | 2025-04-16 09:46 | XMS_ITS | Encounter Summary ---
Author Organization [facility] Address [address] [place] [address] Care Team Providers Care Proof Load Mechanic Name Role Phone Lito Figueroa MD Primary Care Provider [phone] Encounter Details Date Type Department Care Team (Latest Contact Info) Description 12/14/2006 Outpatient Historical [facility] 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
--- OUTSIDE RECORDS SUMMARY | 2025-04-16 09:46 | XMS_ITS | Clinical Summary ---
Author Organization [facility] Address [address] [facility] [address] Attn: Epic Prelude ADT JOSE TANG [address] Care Team Providers Care Technical Buyer Name Role Phone Lito Figueroa MD Primary Care Provider Allergies No known active allergies Medications amLODIPine (NORVASC) 10 mg tablet Take 10 mg by mouth daily. 08/13/2022 Active atorvastatin (LIPITOR) 40 mg tablet TAKE 1 TABLET BY MOUTH EVERY BEDTIME 08/13/2022 Active glimepiride (AMARYL) 2 mg tablet 4 mg. 08/13/2022 Active lisinopriL (PRINIVIL) 5 mg tablet Take 5 mg by mouth daily. 08/13/2022 Active meloxicam (MOBIC) 15 mg tablet TAKE 1 TABLET BY ORAL ROUTE EVERY DAY 07/09/2022 Active metFORMIN (GLUCOPHAGE) 1,000 mg tablet TAKE ONE TABLET BY MOUTH 2 TIMES EVERY DAY WITH MORNING AND EVENING MEALS 07/09/2022 Active multivitamin (DAILY-RIA) tablet Take 1 Tablet by mouth daily. Active pioglitazone (ACTOS) 30 mg tablet Take 30 mg by mouth daily. 05/30/2022 Active HYDROcodone-anshul taminophen (NORCO) 5-325 mg tabletIndicatio ns:Carpal tunnel syndrome of right wrist,Cubital tunnel syndrome on right Take 1 Tablet by mouth every 4 hours as needed for Pain, Severe. Max Daily Amount: 6 Tablets 30 Tablet 11/21/2022 4:17 PM CDT 11/21/2022 Active Active Problems Problem Noted Date Diagnosed Date Cellulitis 2013 UTI (urinary tract infection) 10/22/2012 DM (diabetes mellitus) 10/22/2012 Obesity 04/29/2012 Constipation 04/29/2012 Abdominal pain, generalized 04/29/2012 Knee pain 05/06/2010 Osteoarthritis of knee 05/06/2010 Hypertension 01/28/2010 Family History Medical History Relation Name Comments Unknown Father Other Mother emphsema Colon Cancer Neg Hx Relation Name Status Comments Father Mother Social History Tobacco Use Types Packs/Day Years Used Date Smoking Tobacco: Former Smokeless Tobacco: Former Tobacco Cessation:Counseling Given: Not Answered Alcohol Use Standard Drinks/Week Comments No 0 (1 standard drink = 0.6 oz pur e alcohol) Feeling Safe Answer Date Recorded Are you in a relationship wi th someone who hurts you emotionally and/or physically? No 11/21/2022 Sex and Gender Information Value Date Recorded Sex Assigned at Not on file Legal Sex Male 5:02 PM MASTER COOK Gender Identity Not on file Sexual Orientation Not on file Last Filed Vital Signs Vital Sign Reading Time Taken Comments Blood Pressure 126/70 01/06/2023 9:12 AM CDT Pulse 63 11/21/2022 3:45 PM CDT Temperature 36.1 C (97 F) 11/21/2022 3:45 PM CDT Respiratory Rate 13 11/21/2022 1:52 PM CDT Oxygen Saturation 92% 11/21/2022 3:45 PM CDT Inhaled Oxygen Concentration - - Weight 149.2 kg (329 lb) 01/06/2023 9:12 AM CDT Height 188 cm (6' 2 ) 01/06/2023 9:12 AM CDT Body Mass Index 42.24 01/06/2023 9:12 AM CDT Plan of Treatment Health Maintenance Due Date Last Done Comments DIABETES ANNUAL FOOT EXAM 1981 DIABETES ANNUAL RETINAL EXAM 1981 DIABETES MICROALBUMIN ANNUAL SCREEN 1981 LDL CHOLESTEROL ANNUAL 1981 DTAP/TDAP/TD VACCINES (1 - Tdap) 1982 COLORECTAL SCREENING 2008 Colorectal Cancer Screening 2008 FIT-DNA Q 3 years 2008 FIT/FOBT Q 1 year 2008 Flex Sig/CT Colonography Q 5 years 2008 ZOSTER VACCINE (1 of 2) 2013 DIABETES HBA1C Q 6 MONTHS 12/17/20152014, 03/28/2015, 10/16/2014, Additional history exists INFLUENZA VACCINE (#1) 2025 RSV VACCINE (60+ or ) (1 - 1-dose 75+ series) [address] [place] [id number] RX [employer] RX Member Subscriber Plan / Payer (Ef fective 2022-Present) Name:Gennaro Sheikh Relation to Subscriber:Self Name:Gennaro Sheikh Subscriber ID:Not on file Payer ID:Not on file Group ID:[id number] Type:RX Medicare Part D Address: [place], [place] [id number] Advance Directives For more information, please contact: [phone] * Full Code (Latest Code Status on File) Date Activated Date Inactivated Comments 11/21/2022 1:03 PM 11/21/2022 6:35 PM Care Teams Technical Buyer Relationship Specialty Start Date End Date Lito Figueroa MD [address] [place] [address] PCP - General Family Practice 06/18/12
--- OUTSIDE RECORDS SUMMARY | 2025-04-16 09:46 | XMS_ITS | Encounter Summary ---
Author Organization [facility] Address [address] [place] [address] Care Team Providers Care Pathology Lab Technician Name Role Phone Lito Figueroa MD Primary Care Provider Encounter Details Date Type Department Care Team (Latest Contact Info) Description 03/17/2006 Outpatient Historical [facility] Medicine [place] [address] [phone] Trisha Jane, [facility] [address] [phone] Cellulitis and Abscess of Leg, except Foot (Primary Dx) Social History Tobacco Use Types Packs/Day Years Used Date Smoking Tobacco: Never Assessed Sex and Gender Information Value Date Recorded Sex Assigned at Not on file 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
--- OUTSIDE RECORDS SUMMARY | 2025-04-16 09:47 | XMS_ITS | Clinical Summary ---
Author Organization [facility] Address [address] [place] [address] Care Team Providers Care Senior Relationship Manager Name Role Phone Lito Figueroa MD Primary Care Provider [phone] Allergies No known active allergies Medications multivitamin (DAILY-RIA) Oral Tab Take 1 Tab by mouth daily. Active baclofen (LIORESAL) 10 mg Oral tablet Take 1 Tab by mouth 3 times daily as needed for Pain. 90 Tab 1 2 Active HYDROcodone-anshul taminophen (NORCO) 5-325 mg Oral tablet Take 1 Tab by mouth every 4 hours as needed for Pain, Moderate. 40 Tab 0 3 Active hydrochlorothia zide 25 mg Oral tablet Take 1 Tab by mouth daily. 30 Tab 5 3 Active naproxen (NAPROSYN) 500 mg Oral tablet Take 1 Tab by mouth 2 times daily with meals. 60 Tab 0 3 Active lisinopril (PRINIVIL) 40 mg Oral tabletIndicatio ns:Hypertension Take 1 Tab by mouth daily. 30 Tab 2 3 Active clotrimazole-be tamethasone (LOTRISONE) 1-0.05 % Topical Crea Apply to affected area 2 times daily. 45 Gram 0 3 Active omeprazole magnesium (PRILOSEC OTC) 20 mg Oral TbEC Take 1 Tab by mouth 2 times daily. 60 Tab 5 3 Active blood sugar diagnostic Strip 1 Strip by See Admin Instructions route daily. 50 Strip 3 10/29/201 3 Active metFORMIN (GLUCOPHAGE) 500 mg tablet Take 1 Tab by mouth 2 times daily with meals. 180 Tab 0 3 Active Active Problems Problem Noted Date Diagnosed Date Cellulitis 2013 DM (diabetes mellitus) 10/22/2012 UTI (urinary tract infection) 10/22/2012 Obesity 04/29/2012 Constipation 04/29/2012 Abdominal pain, generalized 04/29/2012 Knee pain 05/06/2010 Osteoarthritis of knee 05/06/2010 Hypertension 01/28/2010 Family History Medical History Relation Name Comments Unknown Father Other Mother emphsema Colon Cancer Neg Hx Relation Name Status Comments Father Mother Social History Tobacco Use Types Packs/Day Years Used Date Smoking Tobacco: Former Smokeless Tobacco: Former Alcohol Use Standard Drinks/Week Comments No 0 (1 standard drink = 0.6 oz pur e alcohol) Sex and Gender Information Value Date Recorded Sex Assigned at Not on file 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 Gender Identity Not on file Sexual Orientation Not on file Occupation Industry Job Start Date Job End Date Not on file Not on file Not on file Not on file Last Filed Vital Signs Vital Sign Reading Time Taken Comments Blood Pressure 128/76 05/13/2013 11:31 AM CDT Pulse 82 05/13/2013 11:31 AM CDT Temperature 36 C (96.8 F) 05/13/2013 11:31 AM CDT Respiratory Rate 18 05/13/2013 11:31 AM CDT Oxygen Saturation 96% 02/09/2012 10:43 AM CDT Inhaled Oxygen Concentration - - Weight 150.1 kg (331 lb) 05/13/2013 11:31 AM CDT Height 185.4 cm (6' 1 ) 05/13/2013 11:31 AM CDT Body Mass Index 43.67 05/13/2013 11:31 AM CDT Plan of Treatment Health Maintenance Due Date Last Done Comments DIABETES ANNUAL FOOT EXAM 1981 DIABETES ANNUAL RETINAL EXAM 1981 DIABETES MICROALBUMIN ANNUAL SCREEN 1981 DTAP/TDAP/TD VACCINES (1 - Tdap) 1982 COLORECTAL SCREENING 2008 Colorectal Cancer Screening 2008 FIT-DNA Q 3 years 2008 FIT/FOBT Q 1 year 2008 Flex Sig/CT Colonography Q 5 years 2008 ZOSTER VACCINE (1 of 2) 2013 LDL CHOLESTEROL ANNUAL 02/07/2014 02/07/2013, 2006 DIABETES HBA1C Q 6 MONTHS 12/17/20152014, 03/28/2015, 10/16/2014, Additional history exists INFLUENZA VACCINE (#1) 2025 RSV VACCINE (60+ or ) (1 - 1-dose 75+ series) 2038 Procedures Procedure Name Priority Date/Time Associated Diagnosis Comments LIPID PANEL Routine 02/07/2013 8:50 AM CDT DM (diabetes mellitus) ([facility]) Hypertension HEMOGLOBIN A1C Routine 02/07/2013 8:50 AM CDT DM (diabetes mellitus) ([facility]) from Last 3 Months or Most Recently Relevant to Health Maintenance Results * (ABNORMAL) HEMOGLOBIN A1C (02/07/2013 8:50 AM CDT) HEMOGLOBIN A1C 7.2(H) 4.0 - 6.0 % [facility] Comment: This test was performed on a Grid2020 II instrument using HPLC methodology. Blood specimen (specimen) 02/07/2013 8:50 AM CDT 02/07/2013 8:51 AM CDT Dario Baird NP CHEMISTRY ORDERABLES Final Re sult INTERFACE SYSTEM Refer to clinic/hospital department [facility] CLIA# [id number] [address] [place] [address] * (ABNORMAL) LIPID PANEL (02/07/2013 8:50 AM CDT) CHOLESTEROL 214(H) 100 - 200 MG/DL [facility] TRIGLYCERIDE 211(H) 0 - 150 MG/DL [facility] HDL 33(L) 40 - 60 MG/DL [facility] LDL CALCULATED 139(H) 58 - 100 MG/DL [facility] Comment: CALCULATED LDL REFERENCE: < 100 Optimal 100 - 129 Near Optimal 130 - 159 Borderline High > 160 High Risk CHOL/HDL RATIO 6.48(H) 3.43 - 4.97 RATIO [facility] Blood specimen (specimen) 02/07/2013 8:50 AM CDT 02/07/2013 8:51 AM CDT us Dario Baird NEUROBIOLOGIST CHEMISTRY ORDERABLES Final Re sult INTERFACE SYSTEM Refer to clinic/hospital department [facility] CLIA# [id number] [address] [place] [address] from Last 3 Months or Most Recently Relevant to Health Maintenance Insurance MEDICARE PART A AND B [place]ICAID [place] Advance Directives For more information, please contact: [phone] * Full Code (Latest Code Status on File) Date Activated Date Inactivated Comments 02/09/2012 8:46 AM 02/10/2012 2:01 AM Care Teams Senior Relationship Manager Relationship Specialty Start Date End Date Lito Figueroa MD PCP - General Family Practice 06/18/12
--- OUTSIDE RECORDS SUMMARY | 2025-04-16 09:47 | XMS_ITS | Encounter Summary ---
Author Organization [facility] Address [address] [place] [address] Care Team Providers Care Sourcing Assistant Name Role Phone Lito Figueroa MD Primary Care Provider Encounter Details Date Type Department Care Team (Latest Contact Info) Description 06/26/2006 Outpatient Historical [facility] Medicine [address] [phone] Dario Baird, LENDING MANAGER [address] [place] [address] Osteoarth NOS-Other Site (Primary Dx); Pain in Joint, Lower Leg; Unspecified Essential Hypertension; Dyspepsia and Other Specified Disorders of Function of Stomach Social History Tobacco Use Types Packs/Day Years Used Date Smoking Tobacco: Never Assessed Sex and Gender Information Value Date Recorded Sex Assigned at Not on file 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
--- OUTSIDE RECORDS SUMMARY | 2025-04-16 09:47 | XMS_ITS | Encounter Summary ---
Author Organization [facility] Address [address] [place] [address] Care Team Providers Care Bone Process Operator Name Role Phone Lito Figueroa MD Primary Care Provider Encounter Details Date Type Department Care Team (Latest Contact Info) Description 12/04/2006 Outpatient Historical [facility] Medicine [place] [address] [phone] Dario Baird, WIRELESS TELEGRAPHER [address] [place] [address] Unspecified Essential Hypertension (Primary Dx); Encounter for Long-Term (Current) Use of Other Medications Social History Tobacco Use Types Packs/Day Years Used Date Smoking Tobacco: Never Assessed Sex and Gender Information Value Date Recorded Sex Assigned at Not on file 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
--- OUTSIDE RECORDS SUMMARY | 2025-04-16 09:47 | XMS_ITS | Encounter Summary ---
Author Organization [facility] Address [address] [place] [address] Care Team Providers Care Resawyer Name Role Phone Lito Figueroa MD Primary Care Provider [phone] Encounter Details Date Type Department Care Team (Late st Contact Info) Description 12/09/2011 Ancillary Orders [facility] Medicine [place] [address] [phone] Dario Baird, DEPUTY PROBATION OFFICER [address] [place] [address] Knee pain Social History Tobacco Use Types Packs/Day Years Used Date Smoking Tobacco: Former Smokeless Tobacco: Former Alcohol Use Standard Drinks/Week Comments No 0 (1 standard drink = 0.6 oz pur e alcohol) Sex and Gender Information Value Date Recorded Sex Assigned at Not on file 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 [email or web address] - uploaded from [email or web address] - Jj 12/09/2011 3:27 PM CDT Exam: XR KNEE 3 VW LEFT Date/Time of Exam: Dec 09, 2011 06:59:00 AM Reason For Exam: PAIN IN JOINT, LOWER LEG. Findings: Bones and joint spaces are within normal limits. No joint effusion seen. No fracture or dislocation evident. Procedure Note Jas Samayoa MD - 12/09/2011 Exam: XR KNEE 3 VW LEFT Date/Time of Exam: Dec 09, 2011 06:59:00 AM Reason For Exam: PAIN IN JOINT, LOWER LEG. Findings: Bones and joint spaces are within normal limits. No joint effusion seen. No fracture or dislocation evident. IMPRESSION Impression: No significant abnormality. rli - uploaded from [employer] - Dario Baird NP DIAGNOSTIC IMAGING ORDERABLES Final Result documented in this encounter Visit Diagnoses Diagnosis Knee pain Pain in joint, lower leg Knee pain Pain in joint, lower leg documented in this encounter Care Teams Resawyer Relationship Specialty Start Date End Date Lito Figueroa MD PCP - General Family Practice 06/18/12 documented as of this encounter
--- OUTSIDE RECORDS SUMMARY | 2025-04-16 09:47 | XMS_ITS | Encounter Summary ---
Author Organization [facility] Address [address] [place] [address] Care Team Providers Care Wall Covering Contractor Name Role Phone Lito Figueroa MD Primary Care Provider [phone] Encounter Details Date Type Department Care Team (Latest Contact Info) Description 12/17/2005 Outpatient Historical [facility] Orthopedics 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
--- OUTSIDE RECORDS SUMMARY | 2025-04-16 09:47 | XMS_ITS | Encounter Summary ---
Author Organization [facility] Address [address] [place] [address] Care Team Providers Care Staffing Clerk Name Role Phone Lito Figueroa MD Primary Care Provider Encounter Details Date Type Department Care Team (Latest Contact Info) Description 01/05/2006 Outpatient Historical [facility] Medicine [address] [phone] Dario Baird, SCHOOL ADJUSTMENT COUNSELOR [address] [place] [address] Unspecified Essential Hypertension (Primary Dx) Social History Tobacco Use Types Packs/Day Years Used Date Smoking Tobacco: Never Assessed Sex and Gender Information Value Date Recorded Sex Assigned at Not on file 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
--- OUTSIDE RECORDS SUMMARY | 2025-04-16 09:47 | XMS_ITS | Encounter Summary ---
Author Organization [facility] Address [address] [place] [address] Care Team Providers Care Coffee Brewer Name Role Phone Lito Figueroa MD Primary Care Provider Encounter Details Date Type Department Care Team (Latest Contact Info) Description 11/21/2005 Outpatient Historical [facility] Medicine [place] [address] [phone] Dario Baird, HIDE WORKER [address] [place] [address] Pain in Joint, Lower Leg (Primary Dx) Social History Tobacco Use Types Packs/Day Years Used Date Smoking Tobacco: Never Assessed Sex and Gender Information Value Date Recorded Sex Assigned at Not on file Legal Sex Male 3:26 AM RN CASE MANAGEMENT Gender Identity Not on file Sexual Orientation Not on file documented as of this encounter Plan of Treatment Not on file documented as of this encounter Visit Diagnoses Diagnosis Pain in joint, lower leg- Primary documented in this encounter Care Teams Coffee Brewer Relationship Specialty Start Date End Date Lito Figueroa MD PCP - General Family Practice 06/18/12 documented as of this encounter
--- OUTSIDE RECORDS SUMMARY | 2025-04-16 09:47 | XMS_ITS | Encounter Summary ---
Author Organization [facility] Address [address] [place] [address] Care Team Providers Care Farm Machine Operator Name Role Phone Lito Figueroa MD Primary Care Provider [phone] Encounter Details Date Type Department Care Team (Latest Contact Info) Description 06/16/2006 Outpatient Historical [facility] Medicine [address] [phone] Dario Baidr, BRANCH ACCOUNT MANAGER [address] [place] [address] Other and Unspecified Hyperlipidemia (Primary Dx); Dietary Surveil/Large Engine Assembler Social History Tobacco Use Types Packs/Day Years Used Date Smoking Tobacco: Never Assessed Sex and Gender Information Value Date Recorded Sex Assigned at Not on file Legal Sex Male 3:26 AM RECEP Gender Identity Not on file Sexual Orientation Not on file documented as of this encounter Plan of Treatment Not on file documented as of this encounter Visit Diagnoses Diagnosis Other and unspecified hyperlipidemia- Primary Dietary surveil/chromosomal disorders counselor Dietary surveillance and counseling documented in this encounter Care Teams Farm Machine Operator Relationship Specialty Start Date End Date Lito Figueroa MD PCP - General Family Practice 06/18/12 documented as of this encounter
--- NOTE | 2025-04-16 09:53 | XRR_ITS ---
PROCEDURE INFORMATION: Exam: XR Left Foot Exam date and time: 04/16/2025 9:59 AM Age: 60 years old Clinical indication: Pain; Foot; Left; Additional info: Possible osteomyelitis; Pain/swelling/ulceration to lt 2nd digit on lt foot; HX diabetes, neuropathy TECHNIQUE: Imaging protocol: Radiologic exam of the left foot. Views: 3 or more views. COMPARISON: 1. CR XR foot LT min 3V* [id number] 09/15/2022 12:35 PM 2. CR XR foot LT min 3V* [id number] 07/29/2022 9:18 PM FINDINGS: Bones/joints: Mild distal cortical lucency of the 2nd digit distal phalanx, may indicate possible osteomyelitis. Degenerative change most notably of the tarsometatarsal and intertarsal joints and 1st metatarsophalangeal is similar to prior. Small posterior and plantar calcaneal enthesophytes. Soft tissues: Soft tissue edema. Marked soft tissue edema of the 2nd digit with likely soft tissue ulceration, can correlate clinically. No radiopaque foreign bodies. XR/XR foot LT min 3V* [id number] IMPRESSION: 1. Mild distal cortical lucency of the 2nd digit distal phalanx, may indicate possible osteomyelitis. MR foot can be obtained to further evaluate as clinically indicated. 2. Marked soft tissue edema of the 2nd digit with likely soft tissue ulceration, can correlate clinically. No radiopaque foreign bodies.
--- NOTE | 2025-04-16 09:54 | W.ED.EXTPRO ---
HPI - Extremity Problem General: Chief complaint: Extremity Injury, Lower Stated complaint: R foot second toe swelling Time Seen by Provider: 04/16/25 09:51 History of Present Illness: 60-year-old male presents emergency room complaining of swelling and discoloration of his left second toe. No fever sweats or chills chills no drainage from the toe. He states he just noticed this overnight. No injury to the foot. He has not had any drainage. He does have some decreased foot sensation secondary to peripheral neuropathy from his diabetes. He previously had a wound on the left great toe that has healed up. Notes that at rest patient's oxygen saturations with a good waveform on the monitor are at 88% when asked him to take deep breaths and have him sit up from a semireclined position his sat immediately improved to 92%. He denies feeling short of breath he was treated for pneumonia recently. He has not had any productive cough or chest pain Associated symptoms: Deny chest pain or fever(s) Related Data Home Medications ?Medication ?Instructions ?Recorded ?Confirmed amlodipine 10 mg tablet 10 mg PO QAM 08/23/19 12/08/23 atorvastatin 40 mg tablet 40 mg PO QAM 09/19/19 12/08/23 meloxicam 15 mg tablet 15 mg PO DAILY PRN Pain 07/29/20 12/08/23 glimepiride 2 mg tablet 2 mg PO DAILY 03/25/22 12/08/23 lisinopril 2.5 mg tablet 2.5 mg PO DAILY 03/25/22 12/08/23 metformin 1,000 mg tablet 1,000 mg PO DAILY 03/25/22 12/08/23 pioglitazone 15 mg tablet (Actos) 15 mg PO DAILY 03/25/22 12/08/23 sitagliptin phosphate 100 mg 100 mg PO DAILY 03/25/22 12/08/23 tablet (Januvia) Previous Rx's ?Medication ?Instructions ?Recorded sulfamethoxazole 800 1 tab PO BID wound infection 7 09/24/22 mg-trimethoprim 160 mg tablet days #14 tabs (Bactrim DS) diabetic shoes with 3 inserts #1 ea 09/08/23 doxycycline hyclate 100 mg capsule 100 mg PO BID 14 days #28 caps 04/16/25 Allergies Allergy/AdvReac Type Severity Reaction Status Date / Time No Known Allergies Allergy Verified 12/08/23 10:45 Review of Systems Const: Denies: fever(s) or chills Card: Denies: chest pain Resp: Denies: dyspnea GI: Denies: abdominal pain : Denies: dysuria, urinary frequency or urinary urgency Musc: Denies: neck pain or back pain Skin/Breast: Reports: new lesions (Left second toe) PFS ED PFSH: Medical History Type 2 diabetes mellitus with diabetic neuropathy Hypertension Surgical History History of open reduction and internal fixation (ORIF) procedure Right tibia. 1996 Family History Denies family history of Diabetes CAD (coronary artery disease) Clotting disorder Dementia Hyperlipidemia Psychiatric illness Chronic kidney disease (CKD) Suicide Anesthesia complication Bleeding disorder Family history of premature coronary artery disease Lung disease Cancer Hypertension Stroke Social History Smoking and tobacco/nicotine status: never used tobacco/nicotine Alcohol intake: current Alcohol intake frequency: holidays/special occasions only Substance/Drug Use: never Current occupational status: employed Physical Exam Const: COMMON NORMALS: no acute distress GENERAL APPEARANCE: cooperative and comfortable ORIENTATION/CONSCIOUSNESS: Yes awake, Yes oriented to person, Yes oriented to place and Yes oriented to time HENMT: COMMON NORMALS: normocephalic, atraumatic and hearing grossly normal bilaterally HEAD & SCALP: normocephalic and atraumatic Resp: COMMON NORMALS: normal respiratory effort, No retractions, No use of accessory muscles and clear to auscultation bilaterally AUSCULTATION: clear to auscultation bilaterally Cardio: COMMON NORMALS: regular rate, regular rhythm and No murmurs present (Cardio) RATE: regular rate RHYTHM: regular rhythm GI: COMMON NORMALS: Soft to palpation and No hepatosplenomegaly present AUSCULTATION: Yes normoactive bowel sounds PALPATION: Yes Soft to palpation, No Tenderness to palpation present (GI), No Guarding due to palpation present (GI) and Yes No hepatosplenomegaly present Extremity: OTHER: Left second toe cyanotic discoloration of the tip with open wound is dry without drainage. More proximally extending to the base toe is redness erythema some induration general slight swelling. No lymphatic streaking in the forefoot. Dorsalis pedis pulse weak but palpable. Posterior tibial pulse on the left foot is barely palpable. No generalized edema of the foot. Proximal to the left great toe capillary refill is good Neuro: SENSORIUM/ORIENTATION: Yes oriented to person, Yes oriented to place and Yes oriented to time Skin: COMMON NORMALS: no rashes or lesions noted GENERAL SKIN EXAM: no rashes or lesions noted Course Vital Signs: Vital signs: Vital Signs Temperature 97.5 F L 04/16/25 09:56 MDM - Extremity (Nontraumatic) Medical Decision Making White count not significantly elevated. There is questionable little bit of cortical defect on the tip of the distal phalanx. Sed rate is only 26 however. Will start him on doxycycline. Chose doxycycline rather than Bactrim because of concern for renal function given his other medical history medications. He has seen Dr. Park in the past very important for him to follow-up in the next few days with Dr. Park for continuing management of this infection. While the patient was here noted he was desatting while awake sitting at about 45 degrees incline. He improves from 88-89% to the low 90s when sitting up or when asked to take deep breaths or during conversation. Patient is significantly overweight with a BMI of 45 suspect he does have sleep apnea. Encouraged him to follow-up with his doctor regarding evaluation for sleep apnea Lab Data 04/16/25 10:00 04/16/25 10:00 Radiology Impressions Foot X-Ray 04/16/25 09:53 IMPRESSION: 1. Mild distal cortical lucency of the 2nd digit distal phalanx, may indicate possible osteomyelitis. MR foot can be obtained to further evaluate as clinically indicated. 2. Marked soft tissue edema of the 2nd digit with likely soft tissue ulceration, can correlate clinically. No radiopaque foreign bodies. Chest X-Ray 04/16/25 10:03 IMPRESSION: No acute findings. Laboratory Results WBC 6.92 10^3/uL (3.29-11.43) 04/16/25 10:00 RBC 5.38 10^6/uL (3.85-5.65) 04/16/25 10:00 Hgb 15.00 g/dL (11.27-16.99) 04/16/25 10:00 Hct 45.0 % (37-53) 04/16/25 10:00 MCV 83.6 fl (82-101) 04/16/25 10:00 MCH 27.9 pg (27-33) 04/16/25 10:00 MCHC 33.3 g/dL (30-55) 04/16/25 10:00 RDW 15.3 % (12.1-15.1) H 04/16/25 10:00 Plt Count 193 10^3/cmm (157-399) 04/16/25 10:00 MPV 11.2 fL (7.4-10.4) H 04/16/25 10:00 Neut % (Auto) 59.1 % 04/16/25 10:00 Lymph % (Auto) 25.6 % 04/16/25 10:00 Garland % (Auto) 11.7 % 04/16/25 10:00 Eos % (Auto) 2.7 % 04/16/25 10:00 Baso % (Auto) 0.6 % 04/16/25 10:00 Neut # (Auto) 4.09 10^3/uL (1.8-7.7) 04/16/25 10:00 Lymph # (Auto) 1.8 10^3/uL (0.8-4.8) 04/16/25 10:00 Garland # (Auto) 0.8 10^3/uL (0.2-0.9) 04/16/25 10:00 Eos # (Auto) 0.2 10^3/uL (0.0-0.8) 04/16/25 10:00 Baso # (Auto) 0.0 10^3/uL (0.0-0.1) 04/16/25 10:00 Nucleated RBC % (auto) 0 % 04/16/25 10:00 Nucleated RBCs # 0.0 /100WBC 04/16/25 10:00 ESR 26 mm/hr (0-10) H 04/16/25 10:00 Sodium 140 mmol/L (136-145) 04/16/25 10:00 Potassium 4.1 mmol/L (3.5-5.1) 04/16/25 10:00 Chloride 103 mmol/L (98-107) 04/16/25 10:00 Carbon Dioxide 23 mmol/L (22-29) 04/16/25 10:00 Anion Gap 18.1 (5-19) 04/16/25 10:00 BUN 11 mg/dL (8-23) 04/16/25 10:00 Creatinine 0.7 mg/dL (0.7-1.2) 04/16/25 10:00 GFR Calculation 114.3 mL/min (90-130) 04/16/25 10:00 Glucose 202 mg/dL (65-115) H 04/16/25 10:00 Calculated Osmolality 295 mOsm/kg (285-295) 04/16/25 10:00 Calcium 9.3 mg/dL (8.5-10.5) 04/16/25 10:00 Total Bilirubin 0.5 mg/dL (0.15-1.2) 04/16/25 10:00 AST 22 U/L (0-40) 04/16/25 10:00 ALT 25 U/L (0-41) 04/16/25 10:00 Alkaline Phosphatase 79 U/L (40-130) 04/16/25 10:00 Total Protein 7.0 g/dL (6.6-8.7) 04/16/25 10:00 Albumin 4.0 g/dL (3.5-5.2) 04/16/25 10:00 Globulin 3.0 g/dL (1.3-4.6) 04/16/25 10:00 All radiology interpretation(s) finalized by discharge Discharge Plan Discharge Patient Disposition: Home Clinical Impression: Diabetic foot ulcer, Type 2 diabetes mellitus with diabetic neuropathy Condition: Stable Prescriptions: New doxycycline hyclate 100 mg capsule 100 mg PO BID 14 Days Qty: 28 0RF No Action amlodipine 10 mg tablet 10 mg PO QAM pioglitazone [Actos] 15 mg tablet 15 mg PO DAILY Januvia 100 mg tablet 100 mg PO DAILY lisinopril 2.5 mg tablet 2.5 mg PO DAILY metformin 1,000 mg tablet 1,000 mg PO DAILY glimepiride 2 mg tablet 2 mg PO DAILY sulfamethoxazole-trimethoprim [Bactrim DS] 800-160 mg tablet 1 tab PO BID 7 Days Qty: 14 0RF (DME) diabetic shoes with 3 inserts See Rx Instructions .Route .MEDSUPPLY Qty: 1 0RF Rx Instructions: As directed to the Shoe Lizella meloxicam 15 mg tablet 15 mg PO DAILY PRN (Reason: Pain) atorvastatin 40 mg tablet 40 mg PO QAM Discharge Orders: Discharge ED (Routine); Ordered 04/16/25 Ordered By: Lamin Parker Referrals: Lucho Davis, [Primary Care Provider, Family Practice] Discharge Diet: Usual diet Discharge Activity: Resume usual activity Patient Instructions: Opioid Safety, Pain Management, Patient Portal & Phi Instructions Activity Restrictions/Additional Instructions: Thank you for choosing [facility] for your healthcare needs today. It is very important that you follow up as instructed or that you return to the Emergency Department should you have concerns or if your condition changes or worsens in any way. Emergency department visits are focused on emergent conditions, in some cases you may require further evaluation on an outpatient basis. You were seen in the emergency room with complaints of a swollen infected toe. Your white count is normal your sed rate is minimally elevated. Will start you on oral antibiotics 1 pill twice a day for 14 days. You should follow-up with Dr. Park in the office for ongoing care of this infection. (Please note that included in your discharge packet is information concerning opioid safety and pain management. This information is given to all patients were discharged from the ER regardless of their discharge diagnosis or the medicines they usually take or are prescribed.) Print Language: Kinyarwanda Coding Level of Care Code ED Hospitality Job Titles for Abel Belle
[2025-04-16 09:56] VITALS: TEMP 36.4
--- NOTE | 2025-04-16 10:03 | XRR_ITS ---
PROCEDURE INFORMATION: Exam: XR Chest Exam date and time: 04/16/2025 10:10 AM Age: 60 years old Clinical indication: Cough and shortness of breath; Additional info: Cough; SOB; Recent pneumonia; Possible osteomyelitis; Pain/swelling/ulceration to lt 2nd digit on lt foot; HX diabetes, neuropathy TECHNIQUE: Imaging protocol: Radiologic exam of the chest. Views: 1 view. COMPARISON: 1. CR XR chest 1V [id number] 08/12/2019 10:09 AM 2. CR XR chest 1V [id number] 08/09/2019 10:35 PM FINDINGS: Lungs: Lungs are clear. No consolidation. Pleural spaces: No pleural effusion. No pneumothorax. Heart/Mediastinum: Cardiomediastinal silhouette is normal. Bones/joints: No acute abnormality. XR/XR chest 1V portable [id number] IMPRESSION: No acute findings.
[2025-04-16 10:06] LABS: Hematocrit 45.0 % (37-53); Hemoglobin 15.00 g/dL (11.27-16.99); Mean Corpuscular HGB Conc 33.3 g/dL (30-55); Mean Corpuscular Hemoglobin 27.9 pg (27-33); Mean Corpuscular Volume 83.6 fl (82-101); Nucleated Red Blood Cells % 0 %; Platelet Count 193 10^3/cmm (157-399); Red Blood Count 5.38 10^6/uL (3.85-5.65); White Blood Count 6.92 10^3/uL (3.29-11.43)
[2025-04-16 10:24] LABS: Alanine Aminotransferase 25 U/L (0-41); Albumin Level 4.0 g/dL (3.5-5.2); Alkaline Phosphatase 79 U/L (40-130); Anion Gap 18.1 (5-19); Aspartate Amino Transferase 22 U/L (0-40); Blood Urea Nitrogen 11 mg/dL (8-23); Calcium 9.3 mg/dL (8.5-10.5); Carbon Dioxide 23 mmol/L (22-29); Chloride 103 mmol/L (98-107); Creatinine Clr Calc Pharmacy 169.6630; Globulin 3.0 g/dL (1.3-4.6); Glucose 202 mg/dL (65-115); Osmolality Calculated 295 mOsm/kg (285-295); Potassium 4.1 mmol/L (3.5-5.1); Sodium 140 mmol/L (136-145); Total Protein 7.0 g/dL (6.6-8.7)
[2025-04-16 11:04] VITALS: BP 152/80; PULSE 75; O2SAT 93
--- NOTE | 2025-04-17 08:40 | DCPLANNER ---
messaged podiatry for er f/u
== END 2025-04-16 11:10 | disposition home or self-care (01) ==
PROVIDERS: Emergency Provider Family Medicine; PCP Family Medicine
DX: E11.621 Type 2 diabetes mellitus with foot ulcer (principal); L97.529 Non-pressure chronic ulcer of other part of left foot with unspecified severity; E11.40 Type 2 diabetes mellitus with diabetic neuropathy, unspecified; I10 Essential (primary) hypertension; Z79.84 Long term (current) use of oral hypoglycemic drugs
CPT/HCPCS: 36415; 71045; 73630; 80053; 85025; 85651; 87040; 99284

== ENCOUNTER → 2025-04-19 11:06 | Outpatient (BNVA) | payer MEDICARE, SELFPAY | PROVIDERS: PCP Family Medicine; Visit Provider Podiatrist Foot & Ankle Surgery | DX: E11.40 Type 2 diabetes mellitus with diabetic neuropathy, unspecified (principal); L60.3 Nail dystrophy; L84 Corns and callosities; L02.611 Cutaneous abscess of right foot; M20.42 Other hammer toe(s) (acquired), left foot; Z79.84 Long term (current) use of oral hypoglycemic drugs | CPT/HCPCS: 10060; 11730 ==

== ENCOUNTER → 2025-04-24 15:05 | Outpatient (BNVA) | payer MEDICARE, SELFPAY | PROVIDERS: PCP Family Medicine; Visit Provider Podiatrist Foot & Ankle Surgery | DX: L02.611 Cutaneous abscess of right foot (principal); L60.3 Nail dystrophy; E11.40 Type 2 diabetes mellitus with diabetic neuropathy, unspecified; M20.42 Other hammer toe(s) (acquired), left foot; L84 Corns and callosities; Z79.84 Long term (current) use of oral hypoglycemic drugs | CPT/HCPCS: 99214 ==

== ENCOUNTER → 2025-05-10 10:04 | Outpatient (BNVA) | payer MEDICARE, SELFPAY | PROVIDERS: PCP Family Medicine; Visit Provider Podiatrist Foot & Ankle Surgery | DX: E11.40 Type 2 diabetes mellitus with diabetic neuropathy, unspecified (principal); L60.3 Nail dystrophy; M20.42 Other hammer toe(s) (acquired), left foot; L84 Corns and callosities; Z79.84 Long term (current) use of oral hypoglycemic drugs | CPT/HCPCS: 11055; 11721; 99213 ==

== ENCOUNTER → 2025-07-20 11:20 | Outpatient (BNVA) | payer MEDICARE, SELFPAY | PROVIDERS: PCP Family Medicine; Visit Provider Podiatrist Foot & Ankle Surgery | DX: E11.40 Type 2 diabetes mellitus with diabetic neuropathy, unspecified (principal); L60.3 Nail dystrophy; M20.42 Other hammer toe(s) (acquired), left foot; L84 Corns and callosities; Z79.84 Long term (current) use of oral hypoglycemic drugs | CPT/HCPCS: 11055; 11721; 99213 ==